=== PATIENT | male | born 1935 | race Two or more races ===

== ENCOUNTER 2017-06-07 16:59 | Emergency (ER) | payer MEDICAID, OTHER ==
[~2017-06-07] VITALS: Ht 160 cm; Wt 54.4 kg
[~2017-06-07 16:59] MED LIST: ACET325T53 PO; DOCU-270 PO; LACT10SO6 PO; PANT40TA2 PO; TAMS-12 PO; TERA5CAP PO; Zolpidem Tartrate PO
[2017-06-07 17:38] VITALS: BP 144/79
== END 2017-06-07 18:21 | disposition home or self-care (01) ==
LOC: ER 17:01
DX: I10 Essential (primary) hypertension (principal); F41.9 Anxiety disorder, unspecified; N40.0 Benign prostatic hyperplasia without lower urinary tract symptoms
CPT/HCPCS: A4606; Z7502; Z7610

== ENCOUNTER 2017-09-24 03:53 | Emergency (ER) | payer MEDICARE, MEDICAID ==
[~2017-09-24] VITALS: Ht 152.4 cm; Wt 61.7 kg
--- NOTE | 2017-09-24 04:00 | NUR ---
PATIENT RECEIVED FROM HOME C/O ANXIETY AND NOT BEING ABLE TO FALL ASLEEP. A/O X4 ABLE TO MAKE NEEDS KNOWN. NO SOB OR PAIN UPON ASSESSMENT. WILL CONTINUE TO MONITOR FOR ANY CHANGES
--- NOTE | 2017-09-24 04:10 | NUR ---
IN ROOM FOR EVAL
--- NOTE | 2017-09-24 04:27 | NUR ---
DISCHARGE INSTRUCTIONS GIVEN AND UNDERSTOOD
[2017-09-24 04:34] VITALS: BP 164/87
--- NOTE | 2017-09-24 04:34 | NUR ---
PATIENT LEFT ON OWN ABILITY.
== END 2017-09-24 04:30 | disposition home or self-care (01) ==
LOC: ER 03:57
DX: G47.00 Insomnia, unspecified (principal); I10 Essential (primary) hypertension; N40.0 Benign prostatic hyperplasia without lower urinary tract symptoms
CPT/HCPCS: 99283; A4606; Z7610

== ENCOUNTER 2018-12-14 20:00 | Emergency (ER) | payer MEDICAID ==
[~2018-12-14] VITALS: Ht 160 cm; Wt 56.7 kg
--- NOTE | 2018-12-14 20:25 | NUR ---
PT C/C Cough w/ congestion, chest tightness, weakness, headaches x 3 days. NAD NOTED. PT DENIES PAIN AT THIS TIME. RESP EVEN AND UNLABORED. PT ON MONITOR IN BED 3. WILL CONTINUE TO MONITOR.
[2018-12-14 20:43] VITALS: BP 161/85
== END 2018-12-14 23:35 | disposition home or self-care (01) ==
LOC: ER 20:02
DX: J06.9 Acute upper respiratory infection, unspecified (principal); I10 Essential (primary) hypertension; N40.0 Benign prostatic hyperplasia without lower urinary tract symptoms; F10.10 Alcohol abuse, uncomplicated; Y90.9 Presence of alcohol in blood, level not specified
CPT/HCPCS: 71045-TC; 87400

== ENCOUNTER 2019-11-28 14:59 | Emergency (ER) | payer MEDICARE, OTHER ==
[~2019-11-28] VITALS: Ht 160 cm; Wt 56.7 kg
--- NOTE | 2019-11-28 15:30 | NUR ---
patient came in to the er c/o left second toe pain x 2 months, on and off, worst today 8/10ps. On room air, breathing evenly and unlabored. kept comfortable, will continue to monitor accordingly.
[2019-11-28] MEDS ORDERED: IBUPROFEN 600 MG TABLET PO ONE ×2 (16:42→17:00)
[2019-11-28 16:56] VITALS: BP 133/78
--- NOTE | 2019-11-28 16:57 | NUR ---
Patient discharged to home in stable condition. Written and verbal after care instructions given. Patient verbalizes understanding of instruction.
== END 2019-11-28 16:56 | disposition home or self-care (01) ==
LOC: ER 14:59
DX: L03.032 Cellulitis of left toe (principal); I10 Essential (primary) hypertension; N40.0 Benign prostatic hyperplasia without lower urinary tract symptoms; Z79.899 Other long term (current) drug therapy
CPT/HCPCS: 73630-TC

== ENCOUNTER 2020-02-06 14:31 | Emergency (ER) | payer MEDICARE, OTHER ==
[~2020-02-06] VITALS: Ht 149.9 cm; Wt 52.2 kg
--- NOTE | 2020-02-06 14:43 | NUR ---
DR WRIGHT AT BEDSIDE FOR EVAL.
--- NOTE | 2020-02-06 15:12 | NUR ---
REHABILITATION PROGRAM COORDINATOR AT BEDSIDE FOR BLOOD DRAW
[2020-02-06 15:24] LABS: BASOPHILS # (AUTO) 0.1 /CMM (0.0-0.2); BASOPHILS % (AUTO) 1.1 % (0.0-2.0); EOSINOPHILS % (AUTO) 2.9 % (0.0-6.0); HEMATOCRIT 37 % (39-51); HEMOGLOBIN 12.3 g/dL (13.5-17.5); LYMPHOCYTES # (AUTO) 0.8 /CMM (0.8-4.8); LYMPHOCYTES % (AUTO) 10.2 % (20.0-44.0); MEAN CORPUSCULAR HGB CONC 34 g/dl (31.0-36.0); MEAN CORPUSCULAR VOLUME 92 fL (80-96); MONOCYTES # (AUTO) 0.5 /CMM (0.1-1.30); MONOCYTES % (AUTO) 6.7 % (2.0-12.0); NEUTROPHILS # (AUTO) 5.9 /CMM (1.8-8.9); NEUTROPHILS % (AUTO) 79.1 % (43.0-81.0); PLATELET COUNT (AUTO) 173 /CMM (150-450); RED BLOOD CELL COUNT(AUTO) 3.96 MIL/uL (4.5-6.0); WHITE BLOOD COUNT (AUTO) 7.4 K/uL (4.3-11.0)
[2020-02-06 16:08] LABS: ALANINE AMINOTRANSFERASE 26 U/L (12-78); ALBUMIN 3.4 g/dL (3.4-5.0); ALKALINE PHOSPHATASE 95 U/L (46-116); ASPARTATE AMINOTRANSFERASE 18 U/L (15-37); BILIRUBIN,TOTAL 0.4 mg/dL (0.2-1.0); CALCIUM, SERUM 8.1 mg/dL (8.5-10.1); CARBON DIOXIDE 21 mmol/L (21-32); CHLORIDE 109 mmol/L (98-107); CREATININE 2.5 mg/dL (0.6-1.3); GLUCOSE 110 mg/dL (74-106); POTASSIUM 4.4 mmol/L (3.5-5.1); SODIUM SERUM 143 mmol/L (136-145); TOTAL PROTEIN, SERUM 6.9 g/dL (6.4-8.2); UREA NITROGEN, BLOOD 35 mg/dL (7-18)
[2020-02-06 16:22] VITALS: BP 128/80
--- NOTE | 2020-02-06 16:22 | NUR ---
Patient discharged to home in stable condition. Written and verbal after care instructions given. Patient verbalizes understanding of instruction.
== END 2020-02-06 16:24 | disposition home or self-care (01) ==
LOC: EDBD → ER 14:31
DX: G25.81 Restless legs syndrome (principal); G89.29 Other chronic pain; M79.675 Pain in left toe(s); I10 Essential (primary) hypertension; N40.0 Benign prostatic hyperplasia without lower urinary tract symptoms; Z79.899 Other long term (current) drug therapy
CPT/HCPCS: 36415; 73630-TC; 80053-TC; 85025-TC

== ENCOUNTER 2020-02-12 06:32 | Emergency (ER) | payer MEDICARE, OTHER ==
[~2020-02-12] VITALS: Ht 149.9 cm; Wt 52.2 kg
--- NOTE | 2020-02-12 06:45 | NUR ---
at the bed side
[2020-02-12] MEDS ORDERED: BENAZEPRIL HCL 10 MG TABLET ONE (06:58)
[2020-02-12] MEDS ORDERED: BENAZEPRIL HCL 10 MG TABLET PO ONE ×2 (07:00)
[2020-02-12 07:32] VITALS: BP 178/72
--- NOTE | 2020-02-12 07:32 | NUR ---
Patient discharged to home in stable condition. Written and verbal after care instructions given. Patient verbalizes understanding of instruction.
== END 2020-02-12 07:32 | disposition home or self-care (01) ==
LOC: ER 06:35 → EDBD 06:35 → ER 07:32
DX: K59.00 Constipation, unspecified (principal); I10 Essential (primary) hypertension; N40.0 Benign prostatic hyperplasia without lower urinary tract symptoms; Z79.899 Other long term (current) drug therapy

== ENCOUNTER 2020-02-14 08:15 | Emergency (ER) | payer MEDICARE, OTHER ==
[~2020-02-14] VITALS: Ht 144.8 cm; Wt 54.4 kg
[2020-02-14 08:21] VITALS: BP 179/95
[2020-02-14] MEDS ORDERED: SILVER NITRATE APPLICATOR 1 EA BOX ONE (08:28)
--- NOTE | 2020-02-14 08:29 | NUR ---
AT BEDSIDE FOR EVAL.
--- NOTE | 2020-02-14 08:45 | NUR ---
Patient discharged to home in stable condition. Written and verbal after care instructions given. Patient verbalizes understanding of instruction.
== END 2020-02-14 08:46 | disposition home or self-care (01) ==
LOC: ER 08:23
DX: R04.0 Epistaxis (principal); I10 Essential (primary) hypertension; Z79.899 Other long term (current) drug therapy

== ENCOUNTER 2020-07-16 07:36 | Emergency (ER) | payer MEDICARE, OTHER ==
[~2020-07-16] VITALS: Ht 160 cm; Wt 62.1 kg
--- NOTE | 2020-07-16 07:50 | NUR ---
SEEN AND EVAL BY MD WITH NEW ORDERS NOTED
--- NOTE | 2020-07-16 07:55 | NUR ---
IV LINE ESTABLISHED. BLOOD DRAWN AND SENT TO LAB
[2020-07-16] MEDS ORDERED: ACETAMINOPHEN ES 500 MG TABLET PO ONE (08:00)
[2020-07-16 08:02] LABS: BASOPHILS # (AUTO) 0.1 /CMM (0.0-0.2); BASOPHILS % (AUTO) 0.9 % (0.0-2.0); EOSINOPHILS % (AUTO) 4.2 % (0.0-6.0); HEMATOCRIT 38 % (39-51); HEMOGLOBIN 13.4 g/dL (13.5-17.5); LYMPHOCYTES # (AUTO) 1.1 /CMM (0.8-4.8); LYMPHOCYTES % (AUTO) 14.6 % (20.0-44.0); MEAN CORPUSCULAR HGB CONC 35 g/dl (31.0-36.0); MEAN CORPUSCULAR VOLUME 92 fL (80-96); MONOCYTES # (AUTO) 0.8 /CMM (0.1-1.30); NEUTROPHILS # (AUTO) 5.4 /CMM (1.8-8.9); NEUTROPHILS % (AUTO) 70.3 % (43.0-81.0); PLATELET COUNT (AUTO) 200 /CMM (150-450); RED BLOOD CELL COUNT(AUTO) 4.16 MIL/uL (4.5-6.0); WHITE BLOOD COUNT (AUTO) 7.7 K/uL (4.3-11.0)
[2020-07-16] MEDS ORDERED: ACETAMINOPHEN ES 500 MG TABLET ONE (08:04)
--- NOTE | 2020-07-16 08:14 | NUR ---
CT CAME TO PT ROOM TO DO CT
[2020-07-16 08:17] LABS: CALCIUM, SERUM 8.4 mg/dL (8.5-10.1); CARBON DIOXIDE 24 mmol/L (21-32); CHLORIDE 108 mmol/L (98-107); CREATININE 1.9 mg/dL (0.6-1.3); GLUCOSE 99 mg/dL (74-106); POTASSIUM 4.4 mmol/L (3.5-5.1); SODIUM SERUM 140 mmol/L (136-145); UREA NITROGEN, BLOOD 32 mg/dL (7-18)
[2020-07-16 08:24] LABS: APPEARANCE,URINE CLEAR (CLEAR); COLOR,URINE YELLOW (YELLOW); PH,URINE 6.5 (5.0-8.0)
[2020-07-16 08:25] LABS: BILIRUBIN,URINE NEGATIVE (NEGATIVE); BLOOD, URINE N Ery/uL (NEGATIVE); KETONES,URINE NEGATIVE (NEGATIVE); LEUKOCYTE ESTERASE ,URINE NEGATIVE (NEGATIVE); NITRITE, URINE NEGATIVE (NEGATIVE); UGLUCOSE NEGATIVE (NEGATIVE); UROBILINOGEN,URINE 0.2 EU/dL (0.2)
[2020-07-16 08:28] LABS: ALANINE AMINOTRANSFERASE 23 U/L (12-78); ALBUMIN 3.5 g/dL (3.4-5.0); ALKALINE PHOSPHATASE 102 U/L (46-116); ASPARTATE AMINOTRANSFERASE 20 U/L (15-37); BILIRUBIN,DIRECT 0.1 mg/dL (0.0-0.2); BILIRUBIN,TOTAL 0.5 mg/dL (0.2-1.0); LIPASE 256 U/L (73-393); TOTAL PROTEIN, SERUM 7.2 g/dL (6.4-8.2)
[2020-07-16 09:00] VITALS: BP 163/87
== END 2020-07-16 09:01 | disposition home or self-care (01) ==
LOC: ER 07:42
DX: R10.31 Right lower quadrant pain (principal); R10.11 Right upper quadrant pain; E86.0 Dehydration; I10 Essential (primary) hypertension; N40.0 Benign prostatic hyperplasia without lower urinary tract symptoms; Z79.899 Other long term (current) drug therapy
CPT/HCPCS: 36415; 71045-TC; 80048-TC; 80076-TC; 81000-TC; 83690-TC; 85025-TC

== ENCOUNTER 2020-07-31 22:25 | Emergency (ER) | payer MEDICARE, OTHER ==
[~2020-07-31] VITALS: Ht 160 cm; Wt 56.7 kg
[2020-07-31 22:50] VITALS: BP 159/83
== END 2020-07-31 23:53 | disposition home or self-care (01) ==
LOC: ER 22:25
DX: R14.0 Abdominal distension (gaseous) (principal); I10 Essential (primary) hypertension; Z02.89 Encounter for other administrative examinations; Z79.899 Other long term (current) drug therapy
CPT/HCPCS: 74018

== ENCOUNTER 2020-10-01 14:02 | Emergency (ER) | payer MEDICARE, OTHER ==
[~2020-10-01] VITALS: Ht 152.4 cm; Wt 59.0 kg
[2020-10-01] MEDS ORDERED: FINA5TAB11 PO (14:38)
[2020-10-01] MEDS ORDERED: AMLO-212 PO (14:38)
[2020-10-01] MEDS ORDERED: GABA300C PO (14:38)
[2020-10-01 15:31] LABS: BILIRUBIN,URINE NEGATIVE (NEGATIVE); BLOOD, URINE SMALL Ery/uL (NEGATIVE); COLOR,URINE YELLOW (YELLOW); LEUKOCYTE ESTERASE ,URINE NEGATIVE (NEGATIVE); NITRITE, URINE NEGATIVE (NEGATIVE); PH,URINE 5.5 (5.0-8.0); PROTEIN,URINE 100 mg/dl (NEGATIVE); UGLUCOSE NEGATIVE (NEGATIVE); UROBILINOGEN,URINE 0.2 EU/dL (0.2)
[2020-10-01 15:45] VITALS: BP 124/62
[2020-10-01 15:47] LABS: BACTERIA,URINE 1+ /HPF (None Seen); SQUAMOUS EPITHELIAL CELL,UR Few /HPF (None Seen); WBC,URINE 0-2 /HPF (0-3)
[2020-10-04] MEDS ORDERED: POTASSIUM CHLORIDE 10 MEQ TABLET.SA ONE (12:33)
[2020-10-04] MEDS ORDERED: DILTIAZEM HCL 30 MG TABLET ONE (12:33)
== END 2020-10-01 15:59 | disposition home or self-care (01) ==
LOC: ER 14:24
DX: R35.0 Frequency of micturition (principal); N40.0 Benign prostatic hyperplasia without lower urinary tract symptoms; I10 Essential (primary) hypertension; Z79.899 Other long term (current) drug therapy
CPT/HCPCS: 81001

== ENCOUNTER 2020-10-03 12:18 | Inpatient (IN) | payer MEDICARE, OTHER ==
[~2020-10-03] VITALS: Ht 160 cm; Wt 56.2 kg
[~2020-10-03 12:18] MED LIST changes: -ACET325T53 PO; +AMLO-212 PO; +FINA5TAB11 PO; +GABA300C PO; -LACT10SO6 PO; -TAMS-12 PO; -TERA5CAP PO; -Zolpidem Tartrate PO
[2020-10-03] MEDS ORDERED: IV NS 0.9% 500 ML BAG IV ONE (13:00)
--- NOTE | 2020-10-03 13:01 | NUR ---
pt rec'd to er c/o frequency urineation was here on tuesday for the same thing . iv started rt fa wog infusing ns . labs drawn sent to lab ,vss
[2020-10-03 13:02] LABS: BASOPHILS % (AUTO) 0.3 % (0.0-2.0); HEMATOCRIT 42 % (39-51); HEMOGLOBIN 13.7 g/dL (13.5-17.5); LYMPHOCYTES # (AUTO) 0.3 /CMM (0.8-4.8); LYMPHOCYTES % (AUTO) 3.6 % (20.0-44.0); MEAN CORPUSCULAR HGB CONC 33 g/dl (31.0-36.0); MEAN CORPUSCULAR VOLUME 92 fL (80-96); MONOCYTES # (AUTO) 0.4 /CMM (0.1-1.30); MONOCYTES % (AUTO) 5.7 % (2.0-12.0); NEUTROPHILS # (AUTO) 6.3 /CMM (1.8-8.9); NEUTROPHILS % (AUTO) 90.4 % (43.0-81.0); PLATELET COUNT (AUTO) 164 /CMM (150-450); RED BLOOD CELL COUNT(AUTO) 4.51 MIL/uL (4.5-6.0); WHITE BLOOD COUNT (AUTO) 6.9 K/uL (4.3-11.0)
[2020-10-03 13:11] LABS: CALCIUM, SERUM 8.3 mg/dL (8.5-10.1); CARBON DIOXIDE 18 mmol/L (21-32); CHLORIDE 106 mmol/L (98-107); CREATININE 2.6 mg/dL (0.6-1.3); GLUCOSE 148 mg/dL (74-106); POTASSIUM 3.7 mmol/L (3.5-5.1); SODIUM SERUM 141 mmol/L (136-145); UREA NITROGEN, BLOOD 36 mg/dL (7-18)
[2020-10-03 13:16] LABS: ALANINE AMINOTRANSFERASE 28 U/L (12-78); ALBUMIN 2.9 g/dL (3.4-5.0); ALKALINE PHOSPHATASE 82 U/L (46-116); ASPARTATE AMINOTRANSFERASE 33 U/L (15-37); BILIRUBIN,DIRECT 0.2 mg/dL (0.0-0.2); BILIRUBIN,TOTAL 0.5 mg/dL (0.2-1.0); LIPASE 481 U/L (73-393); TOTAL PROTEIN, SERUM 7.4 g/dL (6.4-8.2)
--- NOTE | 2020-10-03 13:48 | NUR ---
MOVE SHEET SUBMITTED AND CALLED FOR TELE BED.
--- NOTE | 2020-10-03 13:51 | NUR ---
[facility] CALLED [facility] PAGED.
--- NOTE | 2020-10-03 14:00 | NUR ---
covid swab done and sent to lab
--- NOTE | 2020-10-03 14:12 | NUR ---
JEAN-PAUL, NEPHEW - [phone]
--- NOTE | 2020-10-03 14:12 | NUR ---
pt resting cont to monitor
--- NOTE | 2020-10-03 14:13 | NUR ---
pt being admitted for afib
--- NOTE | 2020-10-03 14:38 | NUR ---
LAB CALLED PT COVID RESULT POSITIVE (+)
[2020-10-03 16:28] LABS: BILIRUBIN,URINE Negative (NEGATIVE); COLOR,URINE YELLOW (YELLOW); LEUKOCYTE ESTERASE ,URINE Negative (NEGATIVE); NITRITE, URINE Negative (NEGATIVE); PROTEIN,URINE 100 mg/dl (NEGATIVE); UGLUCOSE Negative (NEGATIVE); UROBILINOGEN,URINE 0.2 EU/dL (0.2)
[2020-10-03 16:37] LABS: BACTERIA,URINE Few /HPF (None Seen); SQUAMOUS EPITHELIAL CELL,UR Few /HPF (None Seen); WBC,URINE 0-2 /HPF (0-3)
[2020-10-03 16:38] LABS: COARSE GRANULAR CASTS,URINE Few /LPF (None Seen)
[2020-10-03] MEDS ORDERED: MAG HYDROX/AL HYDROX/SIMETH 30 ML UDC PO PRN (18:00)
[2020-10-03] MEDS ORDERED: MAGNESIUM HYDROXIDE 30 ML UDC PO PRN (18:00)
[2020-10-03] MEDS ORDERED: ZOLPIDEM TARTRATE 5 MG TABLET PO PRN (18:00)
[2020-10-03] MEDS ORDERED: HEPARIN SODIUM, PORCINE 5000 UNITS/1 ML VIAL SQ ONE (18:00)
[2020-10-03] MEDS ORDERED: Z GUARD REMEDY 2 OZ OINT TP PRN (18:00)
[2020-10-03] MEDS ORDERED: ONDANSETRON HCL/PF 4 MG/2 ML VIAL IVP PRN (18:00)
[2020-10-03] MEDS ORDERED: DILTIAZEM HCL 30 MG TABLET PO ONE (18:00)
[2020-10-03] MEDS ORDERED: ACETAMINOPHEN 325 MG TABLET PO PRN (18:00)
[2020-10-03] MEDS ORDERED: DOCUSATE SODIUM LIQ 100 MG/10 ML UDC ONE (18:58)
[2020-10-03] MEDS: DOCUSATE SODIUM 100 MG CAPSULE PO SCH (19:00)
[2020-10-03] MEDS ORDERED: AMIODARONE 450 MG in IV D5W 250 ML IV PRN ×2 (19:30→23:30)
[2020-10-03] MEDS ORDERED: AMIODARONE 150 MG in IV D5W 100 ML IV ONE (19:30)
[2020-10-03] MEDS ORDERED: DILTIAZEM HCL 30 MG TABLET PO SCH (20:48)
[2020-10-03] MEDS ORDERED: AMIODARONE 150 MG/3 ML VIAL IV ONE ×2 (21:29→22:12)
--- NOTE | 2020-10-03 21:50 | NUR ---
MEDICATION- AMIODARONE DRIP STARTED AT 1MG/MIN FOR 6x HOURS PER PROTOCOL. UNABLE TO CLICK "AMINISTER" ON eMAR DUE TO TECHINICAL ISSUES.
[2020-10-03 22:22] LABS: MAGNESIUM 1.8 mg/dL (1.8-2.4); PHOSPHORUS 2.7 mg/dL (2.5-4.9)
--- NOTE | 2020-10-03 22:52 | NUR ---
SPOKE WITH PHARMACISTJOSSE REGARDING ISSUE WITH eMAR WHEN TRYING TO ADMINISTER MEDICATION- AMIODARONE 450MG DRIP IV.
[2020-10-03 23:00] LABS: THYROID STIMULATING HORMONE 0.443 uIU/mL (0.358-3.74)
[2020-10-04] MEDS ORDERED: DILTIAZEM HCL 30 MG TABLET ONE ×2 (00:19→06:24)
[2020-10-04] MEDS: DILTIAZEM HCL 30 MG TABLET PO SCH ×4 (00:22→17:27)
--- NOTE | 2020-10-04 00:43 | NUR ---
PATIENT IS SLEEPING. PATIENT IS ABLE TO REPOSITION BY HIMSELF. PILLOWS ARE PLACED UNDER HEELS FOR COMFORT. PATIENT IS BREATHING EVENLY AND UNLABORED. CONNECTED TO THE MONITOR. SIDE RAILS AT THE LOWEST POSITION. CALL LIGHT IS WITHIN REACH.
--- NOTE | 2020-10-04 03:53 | NUR ---
PATIENT'S AMIODARONE DRIP CHANGED TO A 0.5MG/MIN FOR THE NEXT 18HRS.
[2020-10-04] MEDS ORDERED: AMIODARONE 450 MG in IV D5W 250 ML IV PRN (05:30)
[2020-10-04 06:32] LABS: BASOPHILS % (AUTO) 0.2 % (0.0-2.0); HEMATOCRIT 35 % (39-51); HEMOGLOBIN 12.1 g/dL (13.5-17.5); LYMPHOCYTES # (AUTO) 0.5 /CMM (0.8-4.8); LYMPHOCYTES % (AUTO) 8.2 % (20.0-44.0); MEAN CORPUSCULAR HGB CONC 34 g/dl (31.0-36.0); MEAN CORPUSCULAR VOLUME 90 fL (80-96); MONOCYTES # (AUTO) 0.4 /CMM (0.1-1.30); MONOCYTES % (AUTO) 5.6 % (2.0-12.0); NEUTROPHILS # (AUTO) 5.5 /CMM (1.8-8.9); PLATELET COUNT (AUTO) 142 /CMM (150-450); WHITE BLOOD COUNT (AUTO) 6.4 K/uL (4.3-11.0)
--- NOTE | 2020-10-04 06:47 | NUR ---
PATIENT'S FAMILY MEMBER, BRAD CHATTERJEE, [phone]
[2020-10-04 06:59] LABS: CALCIUM, SERUM 7.7 mg/dL (8.5-10.1); CARBON DIOXIDE 20 mmol/L (21-32); CHLORIDE 110 mmol/L (98-107); CREATININE 2.1 mg/dL (0.6-1.3); GLUCOSE 114 mg/dL (74-106); MAGNESIUM 1.8 mg/dL (1.8-2.4); PHOSPHORUS 2.4 mg/dL (2.5-4.9); POTASSIUM 3.4 mmol/L (3.5-5.1); SODIUM SERUM 142 mmol/L (136-145); UREA NITROGEN, BLOOD 28 mg/dL (7-18)
[2020-10-04 07:08] LABS: CHOLESTEROL 114 mg/dL (<200); HDL CHOLESTEROL 52 mg/dL (40-60); LDL 55 mg/dL (0-99); THYROID STIMULATING HORMONE 0.473 uIU/mL (0.358-3.74); TRIGLYCERIDES 70 mg/dL (30-150)
--- NOTE | 2020-10-04 07:26 | NUR ---
REPORT GIVEN TO EMI ACOSTA FOR ROX.
[2020-10-04] MEDS ORDERED: PANTOPRAZOLE 40 MG TABLET.DR PO SCH (07:30)
[2020-10-04] MEDS: PANTOPRAZOLE 40 MG TABLET.DR PO SCH (08:30)
--- NOTE | 2020-10-04 08:40 | NUR ---
PT SLEEPING GIVEN PROTONIX 40 MG PO FELL BACK TO SLEEP
[2020-10-04] MEDS: FINASTERIDE (5 MG) 5 MG TABLET PO SCH ×2 (09:00→09:30)
[2020-10-04] MEDS: APIXABAN 2.5 MG TABLET PO SCH ×2 (09:00→17:26)
[2020-10-04] MEDS: GABAPENTIN 300 MG CAPSULE PO SCH ×3 (09:00→17:27)
[2020-10-04] MEDS: AMLODIPINE BESYLATE 5 MG TABLET PO SCH (09:30)
[2020-10-04] MEDS: POTASSIUM PHOSPHATE MM 7.5 MMOL in IV NS 0.9% 100 ML IV SCH ×2 (09:30→12:43)
[2020-10-04] MEDS ORDERED: AMLODIPINE BESYLATE 5 MG TABLET ONE (10:01)
[2020-10-04] MEDS ORDERED: GABAPENTIN 300 MG CAPSULE ONE (10:22)
[2020-10-04] MEDS ORDERED: POTASSIUM CHLORIDE 10 MEQ TABLET.SA PO ONE (11:15)
--- NOTE | 2020-10-04 12:13 | NUR ---
Rush pat in EDM - 10/04/20 at 1214 by PAULINE SPOKE TO BEN PORRAS PER PT REQUEST, MADE AWARE OF ADMISSION
--- NOTE | 2020-10-04 12:14 | NUR ---
SPOKE TO VERN PER PT REQUEST, MADE AWARE OF ADMISSION
--- NOTE | 2020-10-04 12:45 | NUR ---
PT ATE LUNCH MEDS GIVEN PER MD ORDER
--- NOTE | 2020-10-04 15:45 | NUR ---
pt resting vss cont to monitor
--- NOTE | 2020-10-04 17:33 | NUR ---
pt took 1700 meds per md order
--- NOTE | 2020-10-04 18:11 | NUR ---
pt given dinner vss
[2020-10-04] MEDS ORDERED: DEXAMETHASONE SOD PHOSPHATE 10 MG/ML VIAL ONE (20:32)
[2020-10-04] MEDS: DEXAMETHASONE SOD PHOSPHATE 10 MG/ML VIAL IV SCH (20:40)
[2020-10-04] MEDS: DOCUSATE SODIUM 100 MG CAPSULE PO SCH (22:32)
[2020-10-05] MEDS: DILTIAZEM HCL 30 MG TABLET PO SCH ×4 (00:58→18:03)
[2020-10-05] MEDS: IV NS 0.9% 1,000 ML IV PRN (04:59)
--- NOTE | 2020-10-05 07:39 | NUR ---
BREAKFAST TRAY PROVIDED. TOLERATING PO WELL.
[2020-10-05] MEDS: PANTOPRAZOLE 40 MG TABLET.DR PO SCH (07:49)
[2020-10-05 07:55] LABS: BASOPHILS % (AUTO) 0.1 % (0.0-2.0); HEMATOCRIT 36 % (39-51); HEMOGLOBIN 11.9 g/dL (13.5-17.5); LYMPHOCYTES # (AUTO) 0.3 /CMM (0.8-4.8); LYMPHOCYTES % (AUTO) 4.5 % (20.0-44.0); MEAN CORPUSCULAR HGB CONC 33 g/dl (31.0-36.0); MEAN CORPUSCULAR VOLUME 91 fL (80-96); MONOCYTES # (AUTO) 0.2 /CMM (0.1-1.30); MONOCYTES % (AUTO) 3.4 % (2.0-12.0); NEUTROPHILS # (AUTO) 5.5 /CMM (1.8-8.9); PLATELET COUNT (AUTO) 150 /CMM (150-450); RED BLOOD CELL COUNT(AUTO) 3.93 MIL/uL (4.5-6.0)
[2020-10-05 08:14] LABS: ALANINE AMINOTRANSFERASE 24 U/L (12-78); ALBUMIN 2.1 g/dL (3.4-5.0); ALKALINE PHOSPHATASE 68 U/L (46-116); ASPARTATE AMINOTRANSFERASE 27 U/L (15-37); BILIRUBIN,TOTAL 0.4 mg/dL (0.2-1.0); CALCIUM, SERUM 7.9 mg/dL (8.5-10.1); CARBON DIOXIDE 16 mmol/L (21-32); CHLORIDE 110 mmol/L (98-107); CREATININE 2.3 mg/dL (0.6-1.3); GLUCOSE 170 mg/dL (74-106); MAGNESIUM 1.9 mg/dL (1.8-2.4); PHOSPHORUS 3.7 mg/dL (2.5-4.9); POTASSIUM 3.7 mmol/L (3.5-5.1); SODIUM SERUM 141 mmol/L (136-145); UREA NITROGEN, BLOOD 33 mg/dL (7-18)
[2020-10-05] MEDS ORDERED: DEXAMETHASONE SOD PHOSPHATE 10 MG/ML VIAL ONE (09:14)
[2020-10-05] MEDS: GABAPENTIN 300 MG CAPSULE PO SCH ×3 (09:28→17:31)
[2020-10-05] MEDS: DEXAMETHASONE SOD PHOSPHATE 10 MG/ML VIAL IV SCH (09:28)
[2020-10-05] MEDS: APIXABAN 2.5 MG TABLET PO SCH ×2 (09:28→17:31)
[2020-10-05] MEDS: AMLODIPINE BESYLATE 5 MG TABLET PO SCH (09:29)
--- NOTE | 2020-10-05 09:34 | NUR ---
NOTED W SMALL, SOFT BOWEL MOVEMENT. CLEANED PATIENT. KEPT COMFORTABLE. HOOKED TO MONITOR. VSS
--- NOTE | 2020-10-05 10:42 | NUR ---
REPOSITIONED TO HIS RIGHT SIDE
--- NOTE | 2020-10-05 12:47 | NUR ---
OFFERED LUNCH TRAY, PATIENT DOES NOT WANT TO EAT YET. PLACED TRAY AT BEDSIDE
[2020-10-05] MEDS ORDERED: GABAPENTIN 300 MG CAPSULE ONE (13:27)
--- NOTE | 2020-10-05 14:21 | NUR ---
REPOSITIONED TO HIS LEFT SIDE
--- NOTE | 2020-10-05 15:06 | NUR ---
PATIENT IN BED ASLEEP. EASILY AROUSABLE BY VOICE. HOOKED TO MONITOR. WILL CONTINUE TO MONITOR ACCORDINGLY
--- NOTE | 2020-10-05 17:42 | NUR ---
REPOSITIONED TO SUPINE POSITION
--- NOTE | 2020-10-05 19:31 | NUR ---
PATIENT IN BED EATING DINNER. TOLERATING PO WELL.
--- NOTE | 2020-10-05 19:38 | NUR ---
ENDORSEMENT GIVEN TO CLIFFORD ACOSTA FOR ROX
--- NOTE | 2020-10-05 19:54 | NUR ---
PATIENT IS FINISHED EATING WITH FOOD, 75% OF TRAY FINISHED.
--- NOTE | 2020-10-05 20:20 | NUR ---
PATIENT IS CLEANED, GOWN CHANGED, BEDSHEET IS CHANGED, AND PERICARE IS PROVIDED. PATIENT IS TOLERATING WELL. PATIENT STATES THAT HE NEEDS TO HAVE A BOWEL MOVEMENT AGAIN. TOILETRY IS OFFERED.
--- NOTE | 2020-10-05 20:49 | NUR ---
PATIENT HAD A BOWEL MOVEMENT. SOFT. BROWN. W/ URINE ON THE BEDPAN. PATIENT IS CHANGED. PATIENT IS REPOSITIONED UP HIGHER IN THE BED AND PLACED ONTO HIS RIGHT.
[2020-10-05] MEDS: DOCUSATE SODIUM 100 MG CAPSULE PO SCH (22:00)
[2020-10-06] MEDS: IV NS 0.9% 1,000 ML IV PRN ×3 (00:42→23:46)
[2020-10-06] MEDS: DILTIAZEM HCL 30 MG TABLET PO SCH ×5 (00:48→23:46)
[2020-10-06] MEDS ORDERED: DILTIAZEM HCL 30 MG TABLET ONE ×5 (01:01→23:36)
[2020-10-06 05:26] LABS: HEMATOCRIT 38 % (39-51); HEMOGLOBIN 12.7 g/dL (13.5-17.5); LYMPHOCYTES # (AUTO) 0.3 /CMM (0.8-4.8); LYMPHOCYTES % (AUTO) 2.6 % (20.0-44.0); MEAN CORPUSCULAR HGB CONC 34 g/dl (31.0-36.0); MEAN CORPUSCULAR VOLUME 91 fL (80-96); MONOCYTES # (AUTO) 0.6 /CMM (0.1-1.30); NEUTROPHILS # (AUTO) 10.9 /CMM (1.8-8.9); NEUTROPHILS % (AUTO) 92.4 % (43.0-81.0); PLATELET COUNT (AUTO) 167 /CMM (150-450); RED BLOOD CELL COUNT(AUTO) 4.13 MIL/uL (4.5-6.0); WHITE BLOOD COUNT (AUTO) 11.8 K/uL (4.3-11.0)
[2020-10-06 05:54] LABS: CALCIUM, SERUM 8.3 mg/dL (8.5-10.1); CARBON DIOXIDE 16 mmol/L (21-32); CHLORIDE 113 mmol/L (98-107); CREATININE 1.9 mg/dL (0.6-1.3); GLUCOSE 147 mg/dL (74-106); MAGNESIUM 1.9 mg/dL (1.8-2.4); PHOSPHORUS 3.2 mg/dL (2.5-4.9); POTASSIUM 4.2 mmol/L (3.5-5.1); SODIUM SERUM 143 mmol/L (136-145); UREA NITROGEN, BLOOD 42 mg/dL (7-18)
--- NOTE | 2020-10-06 07:32 | NUR ---
REPORT GIVEN TO KLAUS ACOSTA FOR ROX.
--- NOTE | 2020-10-06 07:45 | NUR ---
pt desatting on 5L via nc, placed on nrb at 15L now satting at 98%
[2020-10-06] MEDS ORDERED: HYDROCODONE/APAP 5/325MG TABLET ONE ×2 (08:06→16:07)
[2020-10-06] MEDS: HYDROCODONE/APAP 5/325MG TABLET PO PRN ×2 (08:09→16:11)
[2020-10-06] MEDS: FINASTERIDE (5 MG) 5 MG TABLET PO SCH (08:11)
[2020-10-06] MEDS: APIXABAN 2.5 MG TABLET PO SCH ×2 (08:11→16:24)
[2020-10-06] MEDS: PANTOPRAZOLE 40 MG TABLET.DR PO SCH (08:30)
[2020-10-06] MEDS ORDERED: AMLODIPINE BESYLATE 5 MG TABLET ONE (08:34)
[2020-10-06] MEDS ORDERED: DEXAMETHASONE SOD PHOSPHATE 10 MG/ML VIAL ONE (08:34)
[2020-10-06] MEDS ORDERED: GABAPENTIN 300 MG CAPSULE ONE ×3 (08:34→16:23)
[2020-10-06] MEDS: AMLODIPINE BESYLATE 5 MG TABLET PO SCH (08:35)
[2020-10-06] MEDS: DEXAMETHASONE SOD PHOSPHATE 10 MG/ML VIAL IV SCH (08:35)
[2020-10-06] MEDS ORDERED: PANTOPRAZOLE 40 MG TABLET.DR PO ONE (08:35)
[2020-10-06] MEDS: GABAPENTIN 300 MG CAPSULE PO SCH ×3 (08:35→16:24)
--- NOTE | 2020-10-06 10:00 | NUR ---
adl care provided, kept clean and dry and comfortable.
--- NOTE | 2020-10-06 17:00 | NUR ---
x1 bm noted at this time. cleaned pt and changed briefs and bed sheets.
--- NOTE | 2020-10-06 19:19 | NUR ---
REC'D PT IN BED AWAKE AND ALERT. BREATHING ON O2 AT 15LPM VIA NON REBREATHER MASK. RUTH WELL. NO C/O SOB. SKIN WARM AND DRY, VSS. REMAINED ON MONITOR. CALL LIGHT WITHIN REACH. SR UP X2.
[2020-10-06] MEDS: DOCUSATE SODIUM 100 MG CAPSULE PO SCH (21:19)
--- NOTE | 2020-10-07 01:11 | NUR ---
Patient is resting comfortably in bed with eyes closed. Easily aroused. VSS. on ongoing o2 at 15lpm via non rebreather mask. luis well .will cont to monitor ,
--- NOTE | 2020-10-07 03:53 | NUR ---
TELE 115-2
--- NOTE | 2020-10-07 04:15 | NUR ---
REPORT GIVEN TO PAKO FOR ROX
--- NOTE | 2020-10-07 04:20 | NUR ---
pt noted w/ elevated WBC on the day before w/ no new CBC order for today. brendan winslow, hospitalist made aware w/ a new order for CBC and CMP in AM.
[2020-10-07] MEDS ORDERED: HYDROCODONE/APAP 5/325MG TABLET ONE (04:23)
[2020-10-07] MEDS: HYDROCODONE/APAP 5/325MG TABLET PO PRN (04:40)
--- NOTE | 2020-10-07 04:40 | NUR ---
w/ c/o l rib pain. medicated as ordered. will cont to monitor
--- NOTE | 2020-10-07 04:41 | NUR ---
pt was transferred to 115 under ACLS
[2020-10-07 04:50] VITALS: BP 136/73
--- NOTE | 2020-10-07 04:50 | NUR ---
RN ADMITTING NOTES PATIENT RECEIVED FROM ER VIA GURNEY ACCOMPANIED BY ER STAFF. PATIENT A/O X3, CITIZEN OF [place] SPEAKING. RECEIVED ON NON REBREATHER 15 L WITH BREATHING EVEN AND UNLABORED, NO SOB NOTED. NO SIGNS OF ACUTE DISTRESS. IV LOCATED ON RFA #20 RUNNING NS @ 75 ML/HR. TELE MONITORS PLACED. SKIN ASSESSMENT DONE AND INTACT. PATIENT ORIENTED TO ROOM AND STAFF. SAFETY PRECAUTIONS IN PLACE WITH BED IN LOWEST POSITION, CALL LIGHT WITHIN REACH, BREAKS ON, SIDE RIALS UP.
[2020-10-07 05:09] LABS: HEMATOCRIT 38 % (39-51); LYMPHOCYTES # (AUTO) 0.2 /CMM (0.8-4.8); LYMPHOCYTES % (AUTO) 0.8 % (20.0-44.0); MEAN CORPUSCULAR HGB CONC 34 g/dl (31.0-36.0); MEAN CORPUSCULAR VOLUME 89 fL (80-96); MONOCYTES # (AUTO) 0.6 /CMM (0.1-1.30); MONOCYTES % (AUTO) 2.5 % (2.0-12.0); NEUTROPHILS # (AUTO) 22.4 /CMM (1.8-8.9); NEUTROPHILS % (AUTO) 96.7 % (43.0-81.0); PLATELET COUNT (AUTO) 189 /CMM (150-450); RED BLOOD CELL COUNT(AUTO) 4.25 MIL/uL (4.5-6.0); WHITE BLOOD COUNT (AUTO) 23.1 K/uL (4.3-11.0)
--- NOTE | 2020-10-07 05:15 | NUR ---
PATIENT UPPER AND LOWER DENTURES LISTED IN BELONGINGS, BUT UNABLE TO BE FOUND IN BELONGINGS FROM ER. FOLLOWED UP WITH ER STAFF FOR BELONGINGS AND SAY THEY DO NOT HAVE IT.
[2020-10-07 05:31] LABS: ALANINE AMINOTRANSFERASE 27 U/L (12-78); ALKALINE PHOSPHATASE 72 U/L (46-116); ASPARTATE AMINOTRANSFERASE 31 U/L (15-37); BILIRUBIN,TOTAL 0.4 mg/dL (0.2-1.0); CALCIUM, SERUM 8.3 mg/dL (8.5-10.1); CARBON DIOXIDE 18 mmol/L (21-32); CHLORIDE 115 mmol/L (98-107); CREATININE 1.8 mg/dL (0.6-1.3); GLUCOSE 132 mg/dL (74-106); SODIUM SERUM 144 mmol/L (136-145); UREA NITROGEN, BLOOD 43 mg/dL (7-18)
[2020-10-07] MEDS: DILTIAZEM HCL 30 MG TABLET PO SCH ×4 (05:43→23:04)
--- NOTE | 2020-10-07 07:02 | NUR ---
RN CLOSING NOTES PATIENT IN BED RESTING. A/O X 3 ON 15 L OF O2 VIA NRB WITH NO SIGNS OF RESPIRATORY DISTRESS. NO SIGNS OF ACUTE DISTRESS. NO COMPLAINTS OF PAIN OR DISCOMFORT AT THE MOMENT. IV LOCATED ON R FA #20 RUNNING NS @ 75 ML/HR. SAFETY PRECAUTIONS IN PLACE WITH BED IN LOWEST POSITION, CALL LIGHT WITHIN REACH, BREAKS IN, SIDE RAILS UP. PATIENT KEPT CLEAN AND DRY THROUGHOUT. ALL NEEEDS ATTENDED TO. WILL ENDORSE TO ONCOMING SHIFT ABOUT ROX.
[2020-10-07 08:00] VITALS: BP 150/72
--- NOTE | 2020-10-07 08:00 | NUR ---
RN NOTES PATIENT IN BED RESTING. A/O X 3 ON 15 L OF O2 VIA NRB WITH NO SIGNS OF RESPIRATORY DISTRESS. NO SIGNS OF ACUTE DISTRESS. NO COMPLAINTS OF PAIN OR DISCOMFORT AT THIS TIME. IV LOCATED ON RFA #20 NO REDNESS SWELLING NOTED AT THE SITE. SAFETY PRECAUTIONS IN PLACE WITH BED IN LOWEST POSITION, CALL LIGHT WITHIN REACH, BED LOCKED IN POSITION SIDE RAILS UP. PATIENT KEPT CLEAN AND DRY THROUGHOUT.ALL NEEDS ATTENDED WILL CONTINUE TO MONITOR.
[2020-10-07] MEDS: GABAPENTIN 300 MG CAPSULE PO SCH ×3 (09:40→17:14)
[2020-10-07] MEDS: FINASTERIDE (5 MG) 5 MG TABLET PO SCH (09:40)
[2020-10-07] MEDS: PANTOPRAZOLE 40 MG TABLET.DR PO SCH (09:40)
[2020-10-07] MEDS: DEXAMETHASONE SOD PHOSPHATE 10 MG/ML VIAL IV SCH (09:41)
[2020-10-07] MEDS: APIXABAN 2.5 MG TABLET PO SCH ×2 (09:43→17:18)
[2020-10-07] MEDS: AMLODIPINE BESYLATE 5 MG TABLET PO SCH (09:44)
[2020-10-07 10:42] VITALS: BP 150/72
[2020-10-07 12:00] VITALS: BP 126/79
[2020-10-07 16:00] VITALS: BP 150/80
--- NOTE | 2020-10-07 18:52 | NUR ---
RN NOTES PATIENT IN BED RESTING. A/O X 3 ON 15 L OF O2 VIA NRB WITH NO SIGNS OF RESPIRATORY DISTRESS. NO COMPLAINTS OF PAIN OR DISCOMFORT AT THIS TIME. IV LOCATED ON RFA #20 NO REDNESS SWELLING NOTED AT THE SITE. SAFETY PRECAUTIONS IN PLACE WITH BED IN LOWEST POSITION, CALL LIGHT WITHIN REACH, BED LOCKED IN POSITION SIDE RAILS UP. PATIENT KEPT CLEAN AND DRY THROUGHOUT.ALL NEEDS ATTENDED WILL CONTINUE TO MONITOR.
--- NOTE | 2020-10-07 19:30 | NUR ---
TELE/RN OPENING NOTES RECEIVED PATIENT IN BED RESTING. PATIENT IS ALERT AND ORIENTED X 2, CITIZEN OF [place] AND [place] SPEAKING. BREATHING IS EVEN AND UNLABORED. NO SIGNS OF SOB OR RESPIRATORY DISTRESS NOTED. PATIENT IS IN NO SIGNS OF DISTRESS. TELE READING SR. IV ACCESS ON RIGHT FA HAND #20G INTACT. SAFETY MEASURES ARE IN PLACE, BED IS LOCKED AND PLACED IN THE LOW POSITION, CALL LIGHT WITH IN REACH. SIDE RAILS ARE UP X 3. WILL CONTINUE TO MONITOR THROUGH OUT SHIFT.
[2020-10-07] MEDS: DOCUSATE SODIUM 100 MG CAPSULE PO SCH (21:59)
[2020-10-08] MEDS: DILTIAZEM HCL 30 MG TABLET PO SCH ×3 (05:11→18:07)
[2020-10-08 05:50] LABS: ABG BASE EXCESS -8.2 mmol/L; ABG OXYGEN SATURATION 89.6 % (92.0-98.5); ABG PCO2 22.6 mmHg (35.0-45.0); ABG PH 7.411 (7.350-7.450); ABG PO2 57.8 mmHg (75.0-100.0); AaDO2 632.6 mmHg; COHb 0.3 % (0.5-1.5); MetHb 0.3 % (0.0-1.5); O2Hb 89.1 % (94.0-97.0); SITE, ABG Right Brachial; VENT MODE, BG NRB 100%
--- NOTE | 2020-10-08 06:55 | NUR ---
TELE/RN CLOSING NOTES PATIENT IN BED RESTING. PATIENT IS ALERT AND ORIENTED X 2, GREEK SPEAKING. BREATHING IS EVEN AND UNLABORED. NO SIGNS OF SOB OR RESPIRATORY DISTRESS NOTED. PATIENT IS IN NO SIGNS OF DISTRESS. TELE READING SR. IV ACCESS ON RIGHT FA HAND #20G INTACT. ALL NEEDS MET DURING SHIFT. SAFETY MEASURES ARE IN PLACE, BED IS LOCKED AND PLACED IN THE LOW POSITION, CALL LIGHT WITH IN REACH. SIDE RAILS ARE UP X 3. WILL ENDORSE CARE TO DAY SHIFT NURSE.
[2020-10-08 07:21] LABS: BASOPHILS % (AUTO) 0.1 % (0.0-2.0); HEMATOCRIT 41 % (39-51); HEMOGLOBIN 13.7 g/dL (13.5-17.5); LYMPHOCYTES # (AUTO) 0.3 /CMM (0.8-4.8); LYMPHOCYTES % (AUTO) 0.9 % (20.0-44.0); MEAN CORPUSCULAR HGB CONC 33 g/dl (31.0-36.0); MEAN CORPUSCULAR VOLUME 90 fL (80-96); MONOCYTES # (AUTO) 0.5 /CMM (0.1-1.30); MONOCYTES % (AUTO) 1.7 % (2.0-12.0); NEUTROPHILS # (AUTO) 31.8 /CMM (1.8-8.9); NEUTROPHILS % (AUTO) 97.3 % (43.0-81.0); PLATELET COUNT (AUTO) 241 /CMM (150-450); RED BLOOD CELL COUNT(AUTO) 4.59 MIL/uL (4.5-6.0)
[2020-10-08 07:42] LABS: CALCIUM, SERUM 8.9 mg/dL (8.5-10.1); CARBON DIOXIDE 17 mmol/L (21-32); CHLORIDE 114 mmol/L (98-107); CREATININE 1.8 mg/dL (0.6-1.3); GLUCOSE 163 mg/dL (74-106); PHOSPHORUS 2.9 mg/dL (2.5-4.9); POTASSIUM 4.2 mmol/L (3.5-5.1); SODIUM SERUM 146 mmol/L (136-145); UREA NITROGEN, BLOOD 50 mg/dL (7-18)
--- NOTE | 2020-10-08 08:08 | NUR ---
HEALTH ADVISOR OPENING NOTE PATIENT IS IN BED RESTING. PATIENT IS IN NO ACUTE DISTRESS. NO SOB NOTED. PATIENT IS ON OXYGEN NON-REBREATHER MASK ON 15L. HOB ELEVATED. PATIENT IS ON CHIEF NUCLEAR MEDICINE TECHNOLOGIST READING SINUS TACHY 114 WITH OCCASIONAL PACs.. SAFETY MEASURES ARE IN PLACE. PATIENTS BED IS LOCKED AND IN THE LOWEST POSITION WITH BED ALARM ON. SIDE RAILS ARE UP, CALL LIGHT WITHIN REACH. WILL CONTINUE TO MONITOR THROUGH OUT THE SHIFT.
[2020-10-08 08:11] LABS: WHITE BLOOD COUNT (AUTO) 32.7 K/uL (4.3-11.0)
[2020-10-08] MEDS: FINASTERIDE (5 MG) 5 MG TABLET PO SCH (08:42)
[2020-10-08] MEDS: AMLODIPINE BESYLATE 5 MG TABLET PO SCH (08:43)
[2020-10-08] MEDS: PANTOPRAZOLE 40 MG TABLET.DR PO SCH (08:43)
[2020-10-08] MEDS: GABAPENTIN 300 MG CAPSULE PO SCH ×3 (08:43→18:07)
[2020-10-08] MEDS: DEXAMETHASONE SOD PHOSPHATE 10 MG/ML VIAL IV SCH (08:43)
[2020-10-08] MEDS: APIXABAN 2.5 MG TABLET PO SCH ×2 (08:45→18:08)
[2020-10-08 11:28] LABS: LYMPHOCYTES % (MANUAL) 2 % (16-48); MONOCYTES % (MANUAL) 3 % (0-11.0); NEUTROPHILS % (MANUAL) 95 (42-76)
--- NOTE | 2020-10-08 11:32 | NUR ---
TELE/RN NOTE DNP BK RIZVI IS AWARE OF TODAYS WBC LEVEL 32.7, PER DNP NO NEW ORDERS.
--- NOTE | 2020-10-08 17:26 | NUR ---
TELE/RN NOTE PATIENT IS ON 15 L NON REBREATHER MASK, DESATING TO 84% OXYGEN LEVEL, DNP BK RIZVI IS MADE AWARE. NEW ORDER STAT ABG, AND CHEST XRAY
[2020-10-08 17:46] LABS: ABG BASE EXCESS -8.2 mmol/L; ABG OXYGEN SATURATION 79.2 % (92.0-98.5); ABG PCO2 19.9 mmHg (35.0-45.0); ABG PH 7.442 (7.350-7.450); ABG PO2 43.5 mmHg (75.0-100.0); AaDO2 649.6 mmHg; COHb 0.5 % (0.5-1.5); MetHb 0.4 % (0.0-1.5); O2Hb 78.5 % (94.0-97.0); SITE, ABG Right Radial; VENT MODE, BG NRB
--- NOTE | 2020-10-08 17:57 | NUR ---
TELE/RN NOTE DNP BELKYS IS MADE AWARE OF STAT ABG RESULT. WAITING FOR NEW ORDERS. AT THIS TIME THE PATIENT`S SATURATION IS 85% WITH 15 L NONREBREATHER. WILL CONTINUE TO MONITOR THE PATIENT.
--- NOTE | 2020-10-08 18:11 | NUR ---
TELE/RN NOTE DNP BELKYS IS MADE AWARE OF CHEST XRAY RESULT. WAITING FOR BUSH HOG OPERATOR ORDERS.
--- NOTE | 2020-10-08 18:35 | NUR ---
GLASS SETTER CLOSING NOTE PATIENT IS ON 15L NON-REBREATHER MASK. PATIENTS OXYGEN SATURATION DESATING TO 83%. KAYKAY RIZVI IS AWARE. PLACED AN ORDER FOR STAT ABGS AND CHEST XRAY. KAYKAY RIZVI IS AWARE OF RESULTS. WAITING ON FURTHER ORDERS. PATIENT IS ON BRASS CLEANER READING SINUS TACH 117 WITH PAC. SAFETY MEASURES ARE IN PLACE. BED IN THE LOWEST POSITION, WITH BED ALARM ON. CALL LIGHT WITHIN REACH. ENDORSE PATIENT TO THE GANG SUPERVISOR FOR ROX.
--- NOTE | 2020-10-08 18:42 | NUR ---
TELE/RN NOTE PAGED KAYKAY RIZVI AGAIN. WAITING FOR CALL BACK AND NEW ORDERS. THE PATIENT IS SATURATING AT 83% WITH OXYGEN DELIVERING AT 15L/MIN VIA NONREBREATHER.
--- NOTE | 2020-10-08 19:10 | NUR ---
scrap metal burner open notes received patient in bed sp02 88-89%, on 15 L nonrebreather, awake alert and oriented x2, noted with some confusion, on cafeteria monitor sr 71, iv site to right fa #20sl, intact and patent, oriented to staff and call light and kept within reach, low bed and locked, bed alarm in place, awaiting further orders for 02 from . will continue to monitor, pt is verbally responsive. Addendum: 10/09/20 at 0632 by FACUNDO HART RN clarification afib 71
--- NOTE | 2020-10-08 19:20 | NUR ---
TELE/RN NOTE SURFACER BELKYS IS AWARE OF STAT ABG AND XRAY RESULT AND HE SAID HE WILL PLACE AN ORDER SOON. HAT MEASURER NURSE IS MADE AWARE TO FOLLOW UP UNTIL ORDER IS RECEIVED.
--- NOTE | 2020-10-08 19:25 | NUR ---
continuous yarn dyeing machine operator notes made dr tamara marshall made aware of patient 02 at 80-86%. on 15 l non rebreather. new order for highflow 60 liters, rt also made aware, new order noted and carried out.
[2020-10-08 20:00] VITALS: BP 127/61
--- NOTE | 2020-10-08 20:34 | NUR ---
industrial furnace fabricator notes per rt high flow machine available is at 40%. 15 l non rebreather also in place, sp02 at 91-93%. will continue to monitor.
--- NOTE | 2020-10-08 22:15 | NUR ---
hose turner notes pt keeps removing medical tubing including O2 cannula on high flow, made sandrine aware for possible restraints, patient is alert and oriented x2 with confusion despite redirection pt still removed o2 tubing, new order read back and carried out for soft bilateral wrist restraints.
[2020-10-08] MEDS: DOCUSATE SODIUM 100 MG CAPSULE PO SCH (22:17)
[2020-10-09] VITALS (9 sets, daily range): BP systolic 128–153; BP diastolic 68–97
[2020-10-09] MEDS: DILTIAZEM HCL 30 MG TABLET PO SCH ×5 (00:15→23:49)
--- NOTE | 2020-10-09 06:27 | NUR ---
internal investigator closing notes patient in bed awake alert x2 and verbally responsive cuurenlty on 40 l via highflow and 15 l via nonbreather, sp02 100%, tolerated 02 well throughout shift, on endless track vehicle supervisor afib 102, iv site to right fa #20 sl, intact and patent, repositioned and patient is also able to assist with turning, skin remains intact heels offloaded, no redness, small sips of fluids and ice chips offered and tolerated well ,call light kept within reach, low bed and locked, bed alarm in place, will continue to monitor, pt is verbally responsive. remains on bilateral soft wrist restraints due to pt removing 02 tubing than desats, skin checks done wnl, pulses palpable, skin wnl, circulation present, restraints were also released thoughout shift. all needs attended at this time will continue to monitor and attend to needs.
[2020-10-09 06:40] LABS: BASOPHILS # (AUTO) 1.5 /CMM (0.0-0.2); HEMATOCRIT 39 % (39-51); HEMOGLOBIN 13.2 g/dL (13.5-17.5); LYMPHOCYTES # (AUTO) 0.2 /CMM (0.8-4.8); LYMPHOCYTES % (AUTO) 0.6 % (20.0-44.0); MEAN CORPUSCULAR HGB CONC 34 g/dl (31.0-36.0); MEAN CORPUSCULAR VOLUME 90 fL (80-96); MONOCYTES # (AUTO) 0.5 /CMM (0.1-1.30); MONOCYTES % (AUTO) 1.8 % (2.0-12.0); NEUTROPHILS # (AUTO) 24.8 /CMM (1.8-8.9); NEUTROPHILS % (AUTO) 92.1 % (43.0-81.0); PLATELET COUNT (AUTO) 188 /CMM (150-450); RED BLOOD CELL COUNT(AUTO) 4.33 MIL/uL (4.5-6.0); WHITE BLOOD COUNT (AUTO) 26.9 K/uL (4.3-11.0)
[2020-10-09 06:41] LABS: BASOPHILS % (AUTO) 5.5 % (0.0-2.0)
[2020-10-09 07:06] LABS: CALCIUM, SERUM 8.7 mg/dL (8.5-10.1); CARBON DIOXIDE 17 mmol/L (21-32); CHLORIDE 118 mmol/L (98-107); CREATININE 2.2 mg/dL (0.6-1.3); GLUCOSE 148 mg/dL (74-106); MAGNESIUM 2.4 mg/dL (1.8-2.4); PHOSPHORUS 3.3 mg/dL (2.5-4.9); POTASSIUM 4.4 mmol/L (3.5-5.1); SODIUM SERUM 150 mmol/L (136-145); UREA NITROGEN, BLOOD 64 mg/dL (7-18)
[2020-10-09] MEDS: PANTOPRAZOLE 40 MG TABLET.DR PO SCH (07:56)
--- NOTE | 2020-10-09 08:00 | NUR ---
RN Opening note Received patient in bed, AO x 2 able to responds all stimuli, Pt does no appears pain or distress. Skin is warm to touch keep clean/dry intact IV site, respiratory even and unlabored with oxygen 15L NRM and High Flow 40% O2sat 96%. Pt is on soft restrain on bilateral wrist due to pulling out oxygen, providing release soft wrist restrain frequently for nourishment and fluid supply. Kept locked bed with elevated HOB for aspiration precaution and ensure airway and lowest bed foe safety. Call light within reach, will continue to monitor.
[2020-10-09] MEDS: DEXAMETHASONE SOD PHOSPHATE 10 MG/ML VIAL IV SCH (08:36)
[2020-10-09] MEDS: AMLODIPINE BESYLATE 5 MG TABLET PO SCH (08:36)
[2020-10-09] MEDS: FINASTERIDE (5 MG) 5 MG TABLET PO SCH (08:36)
[2020-10-09] MEDS: GABAPENTIN 300 MG CAPSULE PO SCH ×3 (08:36→17:16)
[2020-10-09] MEDS: APIXABAN 2.5 MG TABLET PO SCH ×2 (08:38→17:16)
[2020-10-09 09:53] LABS: MONOCYTES % (MANUAL) 2 % (0-11.0); MYELOCYTES % 1 % (0-0); NEUTROPHILS % (MANUAL) 97 (42-76)
[2020-10-09 09:55] LABS: LYMPHOCYTES % (MANUAL) 0 % (16-48)
--- NOTE | 2020-10-09 18:25 | NUR ---
RN closing Patient in bed resting, does no appears pain or discomfort. Skin is warm to touch kepp clean/dry, intact site on right FA. Respiratory even and unlabored with oxygen high flow 40L and NRM at 15L O2sat 93%. Kept elevated HOB for ensure air way and aspiration precaution and lowest bed for safety. Call light within reach, will endorse scouts.
--- NOTE | 2020-10-09 19:00 | NUR ---
Patient is on Plasma, no s/s of reaction observed:no skin rash or fever, endorsed date night sitter. Will continue to monitor closely for safety.
--- NOTE | 2020-10-09 19:30 | NUR ---
roping tender opening notes Received Pt from morning nurse. Pt is resting in bed comfortably. Pt is alert and orientedX2. Pt speaks Cymraes and able to make needs known. Respiration on high flow 40 L and non rebreather mask 15 L. No SOB. No S/s of distress noted. Tele monitor showed afib uncontolled HR at 105 bpm. Iv site at RFA # 20 is clean, intact and SL. Pt just had convalescent plasma transfusion. Pt tolerated well. Safety precautions is maintained. Bed at low positon, brakes locked, side rails upX2, hob elevated, urinal at the bedside and call light is within reach. Will continue to monitor.
--- NOTE | 2020-10-09 20:15 | NUR ---
supervisor sulfuric acid plant notes Pt's family ( and daughter) called and asked about Pt's condition. Informed Pt's and daughter that Pt is stable and received plasma transfusion today. Pt tolerating well and resting in bed comfortably. No S/s of distress noted. Pt's family appreciate the info. 's named is Keiladamian Lynch ([phone]). Daughter named is Sandor.
[2020-10-09] MEDS: DOCUSATE SODIUM 100 MG CAPSULE PO SCH (22:43)
[2020-10-10] VITALS: BP 118/64
[2020-10-10 04:00] VITALS: BP 123/83
[2020-10-10] MEDS: DILTIAZEM HCL 30 MG TABLET PO SCH ×3 (05:03→17:21)
--- NOTE | 2020-10-10 05:50 | NUR ---
PATIENT RECEIVED ON HFNC 40L 100%, TOLERATING WITH NO DISTRESS NOTED. AMBU BAG AT BEDSIDE. VAPOTHERM ALARM AUDIBLE AND VISIBLE. Addendum: 10/10/20 at 0553 by RIYA BUSTAMANTE RT Amended: Links added.
--- NOTE | 2020-10-10 07:00 | NUR ---
flight teacher closing notes Pt is resting in bed comfortably. Pt is alert and orientedX2. Pt speaks Tajik and able to make needs known. Respiration on high flow 40 L and non rebreather mask 15 L. No SOB. No S/s of distress noted. Vs is stable. Afebrile. Tele monitor showed afib uncontolled HR at 109 bpm. Iv site at L hand # 22 is clean, intact and SL. Bilateral soft wrist restraint are intact, skin is warm to touch and circulation is check Q 2hr. Safety precautions is maintained. Bed at low position, brakes locked, side rails upX2, hob elevated, and call light is within reach. Will endorse to morning nurse for ROX.
[2020-10-10 07:26] LABS: BASOPHILS % (AUTO) 0.1 % (0.0-2.0); HEMATOCRIT 39 % (39-51); HEMOGLOBIN 12.6 g/dL (13.5-17.5); LYMPHOCYTES # (AUTO) 0.2 /CMM (0.8-4.8); LYMPHOCYTES % (AUTO) 0.6 % (20.0-44.0); MEAN CORPUSCULAR HGB CONC 33 g/dl (31.0-36.0); MEAN CORPUSCULAR VOLUME 93 fL (80-96); MONOCYTES # (AUTO) 0.7 /CMM (0.1-1.30); MONOCYTES % (AUTO) 2.9 % (2.0-12.0); NEUTROPHILS # (AUTO) 23.2 /CMM (1.8-8.9); NEUTROPHILS % (AUTO) 96.4 % (43.0-81.0); PLATELET COUNT (AUTO) 145 /CMM (150-450); WHITE BLOOD COUNT (AUTO) 24.1 K/uL (4.3-11.0)
--- NOTE | 2020-10-10 07:30 | NUR ---
TELE/RN OPENING NOTE Received patient resting in bed, A&O x 2, Ecuadorean speaking. No complaints of pain/discomfort at this time. Breathing even and non-labored on High flow oxygen 40 L + 15 L nonrebreather mask, saturating at 95%. No respiratory or cardiac distress noted. On tele monitor, reading uncontrolled a fib 86. IV access noted on L hand #22, patent and intact, and flushing well. Bilateral soft wrist restraints noted, circulation and sensation remain intact on both upper extremities. Bed locked to its lowest position, side rails x 2 up, call light in hand. Will continue with current medical management.
--- NOTE | 2020-10-10 07:30 | NUR ---
TELE/RN NOTE Collected urine sample, called lab for case picker.
[2020-10-10 07:32] LABS: CALCIUM, SERUM 8.4 mg/dL (8.5-10.1); CARBON DIOXIDE 17 mmol/L (21-32); CHLORIDE 118 mmol/L (98-107); CREATININE 2.7 mg/dL (0.6-1.3); GLUCOSE 170 mg/dL (74-106); MAGNESIUM 2.8 mg/dL (1.8-2.4); PHOSPHORUS 4.3 mg/dL (2.5-4.9); POTASSIUM 4.4 mmol/L (3.5-5.1); SODIUM SERUM 149 mmol/L (136-145)
[2020-10-10 07:39] LABS: UREA NITROGEN, BLOOD 87 mg/dL (7-18)
[2020-10-10 08:00] VITALS: BP 127/74
--- NOTE | 2020-10-10 08:18 | NUR ---
BK RIZVI NOTIFIED PATIENT BUN 87 NO NEW ORDERS.
[2020-10-10 08:30] LABS: LYMPHOCYTES % (MANUAL) 5 % (16-48); MONOCYTES % (MANUAL) 3 % (0-11.0); NEUTROPHILS % (MANUAL) 91 (42-76)
--- NOTE | 2020-10-10 09:00 | NUR ---
TELE/RN NOTE Condom catheter in place for strict I&O order.
[2020-10-10] MEDS: PANTOPRAZOLE 40 MG TABLET.DR PO SCH (09:21)
[2020-10-10] MEDS: GABAPENTIN 300 MG CAPSULE PO SCH ×3 (09:21→17:21)
[2020-10-10] MEDS: DEXAMETHASONE SOD PHOSPHATE 10 MG/ML VIAL IV SCH (09:21)
[2020-10-10] MEDS: FINASTERIDE (5 MG) 5 MG TABLET PO SCH (09:21)
[2020-10-10] MEDS: AMLODIPINE BESYLATE 5 MG TABLET PO SCH (09:22)
[2020-10-10] MEDS: APIXABAN 2.5 MG TABLET PO SCH ×2 (09:23→17:22)
[2020-10-10 11:58] LABS: CREATININE, URINE 65.3 MG/DL (30.0-125.0); URINE TOTAL PROTEIN 125.8 mg/dL (0-11.9)
[2020-10-10 12:00] VITALS: BP 113/69
[2020-10-10 12:28] LABS: BILIRUBIN,URINE NEGATIVE (NEGATIVE); COLOR,URINE YELLOW (YELLOW); LEUKOCYTE ESTERASE ,URINE NEGATIVE (NEGATIVE); NITRITE, URINE NEGATIVE (NEGATIVE); PROTEIN,URINE 30 mg/dl (NEGATIVE); UGLUCOSE NEGATIVE (NEGATIVE); UROBILINOGEN,URINE 0.2 EU/dL (0.2)
[2020-10-10 12:50] LABS: BACTERIA,URINE Rare /HPF (None Seen); RBC,URINE 0-2 /HPF (0-2); SQUAMOUS EPITHELIAL CELL,UR Rare /HPF (None Seen); WBC,URINE 0-2 /HPF (0-3)
[2020-10-10 13:29] LABS: EOSINOPHIL,URINE None Seen
[2020-10-10 16:00] VITALS: BP 111/64
--- NOTE | 2020-10-10 18:35 | NUR ---
TELE/RN CLOSING NOTE Patient sleeping in bed, A&O x 2, easily arousable to touch and verbal stimulation. All needs met and attended to. No complaints of pain/discomfort throughout shift. Breathing even and non-labored on High flow oxygen 40 L, FiO2 100%+ 15 L nonrebreather mask, saturating at 90-92%. No respiratory or cardiac distress noted. On tele monitor, reading controlled a fib 92. IV access noted on L hand #22, patent and intact, and flushing well. Bilateral soft wrist restraints noted, circulation and sensation remain intact on both upper extremities. Fall precautions maintained. Will endorse to phlebotomy services representative nurse. Addendum: 10/10/20 at 1851 by STAR NARVAEZ RN Condom catheter in place, draining yellow urine well.
[2020-10-10 20:00] VITALS: BP 135/70
[2020-10-10] MEDS: DOCUSATE SODIUM 100 MG CAPSULE PO SCH (22:20)
[2020-10-11] VITALS: BP 131/64
[2020-10-11] MEDS: DILTIAZEM HCL 30 MG TABLET PO SCH ×4 (01:12→17:01)
[2020-10-11 04:00] VITALS: BP 113/64
--- NOTE | 2020-10-11 07:30 | NUR ---
TECHNICIAN SUPPORT ASSOCIATION NOTES PT IN BED, AWAKE, ALERT AND VERBALLY RESPONSIVE, NOT IN DISTRESS, DENIES PAIN, ON HIGH FLOW N/C AND NR MASK, NO SOB NOTED, KEPT WARM AND COMFORTABLE IN BED.
[2020-10-11 08:00] VITALS: BP 104/64
[2020-10-11 08:44] LABS: BASOPHILS % (AUTO) 0.2 % (0.0-2.0); HEMATOCRIT 38 % (39-51); HEMOGLOBIN 12.6 g/dL (13.5-17.5); LYMPHOCYTES # (AUTO) 0.2 /CMM (0.8-4.8); LYMPHOCYTES % (AUTO) 0.7 % (20.0-44.0); MEAN CORPUSCULAR HGB CONC 33 g/dl (31.0-36.0); MEAN CORPUSCULAR VOLUME 92 fL (80-96); MONOCYTES % (AUTO) 0.2 % (2.0-12.0); NEUTROPHILS # (AUTO) 22.2 /CMM (1.8-8.9); NEUTROPHILS % (AUTO) 98.9 % (43.0-81.0); PLATELET COUNT (AUTO) 111 /CMM (150-450); RED BLOOD CELL COUNT(AUTO) 4.14 MIL/uL (4.5-6.0); WHITE BLOOD COUNT (AUTO) 22.4 K/uL (4.3-11.0)
[2020-10-11] MEDS: AMLODIPINE BESYLATE 5 MG TABLET PO SCH (09:00)
[2020-10-11 09:13] LABS: CALCIUM, SERUM 8.5 mg/dL (8.5-10.1); CARBON DIOXIDE 20 mmol/L (21-32); CHLORIDE 124 mmol/L (98-107); CREATININE 3.3 mg/dL (0.6-1.3); GLUCOSE 160 mg/dL (74-106); MAGNESIUM 3.1 mg/dL (1.8-2.4); PHOSPHORUS 5.2 mg/dL (2.5-4.9); POTASSIUM 5.4 mmol/L (3.5-5.1); SODIUM SERUM 155 mmol/L (136-145)
[2020-10-11 09:16] LABS: UREA NITROGEN, BLOOD 113 mg/dL (7-18)
[2020-10-11] MEDS: DEXAMETHASONE SOD PHOSPHATE 10 MG/ML VIAL IV SCH (09:58)
[2020-10-11] MEDS: PANTOPRAZOLE 40 MG TABLET.DR PO SCH (09:58)
[2020-10-11] MEDS: FINASTERIDE (5 MG) 5 MG TABLET PO SCH (09:58)
[2020-10-11] MEDS: GABAPENTIN 300 MG CAPSULE PO SCH ×3 (09:58→16:58)
[2020-10-11] MEDS: APIXABAN 2.5 MG TABLET PO SCH ×2 (10:00→17:02)
[2020-10-11 12:00] VITALS: BP 134/80
[2020-10-11] MEDS ORDERED: FUROSEMIDE 100 MG/10 ML VIAL IV ONE (12:00)
[2020-10-11] MEDS ORDERED: SODIUM POLYSTYRENE SULFONATE 15 G/60 ML BOTTLE PO ONE (12:00)
[2020-10-11] MEDS ORDERED: IV D5W 1,000 ML IV ONE (12:00)
[2020-10-11 14:14] LABS: LYMPHOCYTES % (MANUAL) 1 % (16-48); MONOCYTES % (MANUAL) 2 % (0-11.0); NEUTROPHILS % (MANUAL) 97 (42-76)
[2020-10-11 15:50] LABS: CALCIUM, SERUM 7.8 mg/dL (8.5-10.1); CARBON DIOXIDE 17 mmol/L (21-32); CHLORIDE 123 mmol/L (98-107); CREATININE 3.3 mg/dL (0.6-1.3); GLUCOSE 225 mg/dL (74-106); POTASSIUM 4.8 mmol/L (3.5-5.1)
[2020-10-11 15:51] LABS: UREA NITROGEN, BLOOD 117 mg/dL (7-18)
[2020-10-11 15:53] LABS: SODIUM SERUM 157 mmol/L (136-145)
[2020-10-11 16:00] VITALS: BP 127/70
--- NOTE | 2020-10-11 18:32 | NUR ---
EMPLOYMENT DIRECTOR NOTES PT IN BED, ASLEEP, EASY TO AROUSE, ALERT AND VERBALLY RESPONSIVE, ABLE TO MAKE NEEDS KNOWN, ON HIGH FLOW AND NON REBREATHER MASK ORDERED, NO SOB NOTED, CONDOM CATH IN PLACE, DRAINING WELL WITH CLEAR, YELLOW URINE, PM MEDS GIVEN, ALL NEEDS ATTENDED.
--- NOTE | 2020-10-11 19:10 | NUR ---
COMPUTER CLERK OPENING NOTES RECEIVED PATIENT IN BED S;EEPING BUT EASILY AROUSABLE , VERBALLY RESPONSIVE ,ALERT AND ORIENTED X2 ON BILATERAL SOFT WRIST RESTRAINTS, SKIN CHECK DONE, SKIN WNL , PULSES PALPABLE, RESPIRATIONS EVEN AND UNLABORED WITH EQUAL RISE AND FALL OF CHEST, ON HIGH FLOW 02 40LPM AND 15 L VIA NRB MASK TOLERATING WELL AT THIS TIME, , IV SITE TO LEFT HAND #22 G INTACT AND PATENT, NO REDNESS, NO INFILTRATION PRESENT, ORIENTED TO STAFF AND CALL LIGHT AND KEPT WITHIN REACH, SAFETY PRECAUTIONS MAINTAINED LOW BED AND LOCKED BED ALARM IN PLACE, WILL CONTINUE TO MONITOR AND ATTEND TO NEEDS.
[2020-10-11 20:00] VITALS: BP 112/81
[2020-10-11] MEDS: DOCUSATE SODIUM 100 MG CAPSULE PO SCH (21:29)
[2020-10-12] VITALS: BP 102/70
--- NOTE | 2020-10-12 00:40 | NUR ---
rn integrated notes upon providing repositioning and perineal care, noted what appears to be blood in stool, moderate amount, red in color foul odor. hospitalist sandrine made aware with new order for cbc stat. current v.s are 102/70,101,24,95%, 98.1 will continue to monitor and awake results. patient is awake verbally responsive and is able to follow simple directions and make needs known.
--- NOTE | 2020-10-12 00:40 | NUR ---
commercial real estate attorney notes pt had large bloody stool
--- NOTE | 2020-10-12 01:05 | NUR ---
product development intern notes hospitalist sandrine aware of stat cbc results. with new order repeat cbc in am .
[2020-10-12 01:08] LABS: BASOPHILS % (AUTO) 0.1 % (0.0-2.0); HEMATOCRIT 37 % (39-51); HEMOGLOBIN 11.9 g/dL (13.5-17.5); LYMPHOCYTES # (AUTO) 0.2 /CMM (0.8-4.8); LYMPHOCYTES % (AUTO) 0.8 % (20.0-44.0); MEAN CORPUSCULAR HGB CONC 33 g/dl (31.0-36.0); MEAN CORPUSCULAR VOLUME 92 fL (80-96); MONOCYTES % (AUTO) 4.4 % (2.0-12.0); NEUTROPHILS % (AUTO) 94.7 % (43.0-81.0); PLATELET COUNT (AUTO) 109 /CMM (150-450); RED BLOOD CELL COUNT(AUTO) 4.01 MIL/uL (4.5-6.0); WHITE BLOOD COUNT (AUTO) 22.1 K/uL (4.3-11.0)
[2020-10-12 04:29] VITALS: BP 114/68
[2020-10-12] MEDS: DILTIAZEM HCL 30 MG TABLET PO SCH ×5 (05:42→23:37)
--- NOTE | 2020-10-12 06:20 | NUR ---
GRANULATING MACHINE OPERATOR CLOSING NOTES PATIENT IN BED SLEEPING BUT EASILY AROUSABLE , VERBALLY RESPONSIVE ,ALERT AND ORIENTED X2 ON BILATERAL SOFT WRIST RESTRAINTS, SKIN CHECK DONE, SKIN WNL , PULSES PALPABLE, RESPIRATIONS EVEN AND UNLABORED WITH EQUAL RISE AND FALL OF CHEST, ON HIGH FLOW 02 40LPM AND 15 L VIA NRB MASK TOLERATING WELL AT THIS TIME AND THROUGHOUT SHIFT , IV SITE TO LEFT HAND #22 G INTACT AND PATENT, NO REDNESS, NO INFILTRATION PRESENT,CALL LIGHT KEPT WITHIN REACH, SAFETY PRECAUTIONS MAINTAINED LOW BED AND LOCKED BED ALARM IN PLACE, PERINEAL CARE , REPOSITIONING AND FLUIDS OFFERED, WILL CONTINUE TO MONITOR AND ATTEND TO NEEDS. NO BM OR BLOOD NOTED AT THIS TIME.
--- NOTE | 2020-10-12 06:23 | NUR ---
ON EXTERIOR WORK HELPER AFIB 101
--- NOTE | 2020-10-12 07:30 | NUR ---
RN OPENING NOTE PT RESTING IN BED COMFORTABLY ON HIGH FLOW OS @ 40LPM WITH NRB @ 15LPM, NO SIGNS OF RESP DISTRESS OR SOB. PT DENIES PAIN. PT HAS CONDOM CATH INTACT AND DRAINING TO GRAVITY. PT ON BILAT SOFT WRIST RESTRAINT, CMS CHECKED AND INTACT. PT HAS LT HAND #22 SL, FLUSHED, INTACT AND PATENT WITH NO SIGNS OF INFILTRATION OR INFECTION. ALL PT SAFETY PRECAUTIONS IN PLACE. WILL CONTINUE TO MONITOR
[2020-10-12 07:52] LABS: HEMATOCRIT 35 % (39-51); HEMOGLOBIN 11.5 g/dL (13.5-17.5); LYMPHOCYTES # (AUTO) 0.2 /CMM (0.8-4.8); LYMPHOCYTES % (AUTO) 0.9 % (20.0-44.0); MEAN CORPUSCULAR HGB CONC 33 g/dl (31.0-36.0); MEAN CORPUSCULAR VOLUME 92 fL (80-96); MONOCYTES % (AUTO) 0.1 % (2.0-12.0); PLATELET COUNT (AUTO) 101 /CMM (150-450); RED BLOOD CELL COUNT(AUTO) 3.79 MIL/uL (4.5-6.0); WHITE BLOOD COUNT (AUTO) 22.2 K/uL (4.3-11.0)
[2020-10-12 07:56] LABS: ABG OXYGEN SATURATION 98.1 % (92.0-98.5); ABG PCO2 26.1 mmHg (35.0-45.0); ABG PH 7.411 (7.350-7.450); ABG PO2 119.5 mmHg (75.0-100.0); AaDO2 567.4 mmHg; COHb 0.3 % (0.5-1.5); MetHb 0.1 % (0.0-1.5); O2Hb 97.7 % (94.0-97.0); SITE, ABG Right Radial; VENT MODE, BG VAPOTHERM 40L 100% NRB
[2020-10-12 08:00] VITALS: BP 113/72
[2020-10-12] MEDS: PANTOPRAZOLE 40 MG TABLET.DR PO SCH (09:53)
[2020-10-12] MEDS: FINASTERIDE (5 MG) 5 MG TABLET PO SCH (09:53)
[2020-10-12] MEDS: DEXAMETHASONE SOD PHOSPHATE 10 MG/ML VIAL IV SCH (09:53)
[2020-10-12] MEDS: AMLODIPINE BESYLATE 5 MG TABLET PO SCH (09:55)
[2020-10-12] MEDS: GABAPENTIN 300 MG CAPSULE PO SCH ×3 (09:55→17:35)
[2020-10-12 12:00] VITALS: BP 116/84
[2020-10-12 12:47] LABS: ALANINE AMINOTRANSFERASE 25 U/L (12-78); ALBUMIN 1.5 g/dL (3.4-5.0); ALKALINE PHOSPHATASE 118 U/L (46-116); ASPARTATE AMINOTRANSFERASE 22 U/L (15-37); BILIRUBIN,TOTAL 0.4 mg/dL (0.2-1.0); CALCIUM, SERUM 7.1 mg/dL (8.5-10.1); CARBON DIOXIDE 19 mmol/L (21-32); CHLORIDE 118 mmol/L (98-107); CREATININE 3.5 mg/dL (0.6-1.3); GLUCOSE 133 mg/dL (74-106); MAGNESIUM 2.8 mg/dL (1.8-2.4); PHOSPHORUS 5.8 mg/dL (2.5-4.9); POTASSIUM 4.5 mmol/L (3.5-5.1); SODIUM SERUM 150 mmol/L (136-145); TOTAL PROTEIN, SERUM 5.1 g/dL (6.4-8.2)
[2020-10-12 12:52] LABS: UREA NITROGEN, BLOOD 130 mg/dL (7-18)
--- NOTE | 2020-10-12 13:00 | NUR ---
RN NOTE RELEASED PT FROM BILAT SOFT WRIST RESTRAINTS AFTER SPEAKING TO PT AND PER MY JUDGEMENT, PT IS ALERT ENOUGH AND WILL COMPLY WITH TREATMENT AND NOT PULL OUT TUBING/IV LINES. WILL MONITOR CLOSELY
[2020-10-12] MEDS ORDERED: APIXABAN 2.5 MG TABLET PO SCH (14:00)
[2020-10-12 16:00] VITALS: BP 118/59
--- NOTE | 2020-10-12 18:39 | NUR ---
RN NOTE NOTIFIED DR SOLIS OF BLOODY STOOL TO D/C PADILLA ORDER PLACED TODAY AT 1400 Addendum: 10/12/20 at 2111 by PABLO TRAN RN PADILAL HARDING
--- NOTE | 2020-10-12 19:00 | NUR ---
RN CLOSING NOTE NO CHANGES TO PT STATUS DURING SHIFT. PT IN STABLE CONDITION. WILL ENDORSE ROX TO ONCOMING NURSE
[2020-10-12 20:00] VITALS: BP 102/74
--- NOTE | 2020-10-12 20:00 | NUR ---
RN NOTES RECEIVED PT IN BED ALERT ORIENTED X 2. WITH NON REBREATHER AND HFNC 40L. NO DISTRESS NOTED. NO SIGNS OF PAIN OR DISCOMFORT. WITH LEFT HAND IV, PATENT AND INTACT, FLUSHED. ALL SAFETY MEASURES IMPLEMENTED PER PROTOCOL. CALL LIGHT WITHIN REACH. BED LOCKED IN LOWEST POSITION. SIDE RAILS UP X 2.
--- NOTE | 2020-10-12 20:26 | NUR ---
RT NOTE PT RECEIVED ON VAPOTHERM @ 40LPM @ 100% WITH NONBREATHER MASK @ 100%. WATER BAG FULL. PT CURRENTLY ON SEMI-WILSON POSITION EATING. NO RESPIRATORY DISTRESS NOTED. WILL CONTINUE TO MONITOR CLOSELY. Addendum: 10/12/20 at 2027 by KRISTEN ADDISON RT Amended: Links added.
[2020-10-12] MEDS: DOCUSATE SODIUM 100 MG CAPSULE PO SCH (22:42)
--- NOTE | 2020-10-13 01:02 | NUR ---
RT NOTE REMOVED 100% NONREBREATHER MASK. NO DISTRESS NOTED AT THIS TIME. KARLA GREEN AWARE. WILL CONTINUE TO MONITOR CLOSELY. Addendum: 10/13/20 at 0103 by KRISTEN ADDISON RT Amended: Links added.
[2020-10-13 01:28] VITALS: BP 123/69
--- NOTE | 2020-10-13 02:00 | NUR ---
RN NOTES PT SLEEPING, EASILY AROUSABLE BY BY VERBAL STIMULI. ON HFNC 60L, NO RESP DISTRESS NOTED.
[2020-10-13 04:00] VITALS: BP 102/65
[2020-10-13 06:11] LABS: BASOPHILS # (AUTO) 0.1 /CMM (0.0-0.2); BASOPHILS % (AUTO) 0.3 % (0.0-2.0); HEMATOCRIT 33 % (39-51); HEMOGLOBIN 10.9 g/dL (13.5-17.5); LYMPHOCYTES # (AUTO) 0.2 /CMM (0.8-4.8); LYMPHOCYTES % (AUTO) 0.8 % (20.0-44.0); MEAN CORPUSCULAR HGB CONC 33 g/dl (31.0-36.0); MEAN CORPUSCULAR VOLUME 92 fL (80-96); MONOCYTES % (AUTO) 0.2 % (2.0-12.0); NEUTROPHILS # (AUTO) 22.4 /CMM (1.8-8.9); NEUTROPHILS % (AUTO) 98.7 % (43.0-81.0); PLATELET COUNT (AUTO) 108 /CMM (150-450); WHITE BLOOD COUNT (AUTO) 22.6 K/uL (4.3-11.0)
[2020-10-13] MEDS: DILTIAZEM HCL 30 MG TABLET PO SCH ×3 (06:13→17:05)
[2020-10-13 06:26] LABS: ALANINE AMINOTRANSFERASE 27 U/L (12-78); ALBUMIN 1.6 g/dL (3.4-5.0); ALKALINE PHOSPHATASE 122 U/L (46-116); ASPARTATE AMINOTRANSFERASE 26 U/L (15-37); BILIRUBIN,TOTAL 0.4 mg/dL (0.2-1.0); CALCIUM, SERUM 7.1 mg/dL (8.5-10.1); CARBON DIOXIDE 17 mmol/L (21-32); CHLORIDE 115 mmol/L (98-107); CREATININE 3.8 mg/dL (0.6-1.3); GLUCOSE 160 mg/dL (74-106); MAGNESIUM 2.8 mg/dL (1.8-2.4); PHOSPHORUS 7.5 mg/dL (2.5-4.9); POTASSIUM 4.9 mmol/L (3.5-5.1); SODIUM SERUM 147 mmol/L (136-145); TOTAL PROTEIN, SERUM 5.1 g/dL (6.4-8.2)
[2020-10-13 06:33] LABS: UREA NITROGEN, BLOOD 149 mg/dL (7-18)
--- NOTE | 2020-10-13 07:00 | NUR ---
RN NOTES PATIENT REMAINS IN BED. NOT IN ANY DISTRESS NOTED. HFNC 40L TOLERATING WELL. LHAND IV PATENT AND INTACT. ISOLATION PRECAUTION MAINTAINED. ATTENDED TO NEEDS. ALL SAFETY MEASURES IMPLEMENTED PER PROTOCOL. CALL LIGHT WITHIN REACH. BED LOCKED IN LOWEST POSITION. SIDE RAILS UP X 2. WILL ENDORSE TO NEXT SHIFT NURSE.
--- NOTE | 2020-10-13 07:07 | NUR ---
RN OPENING NOTES RECEIVED PT AWAKE IN BED AT THIS TIME. PT IS ALERT ORIENTED X2. KAZAKH SPEAKING. NO SOB NOTED, NO S/S OF ANY APPARENT DISTRESS NOTED. NO C/O PAIN NOTED AT THIS TIME. RESPIRATIONS ARE EVEN AND UNLABORED. PT NOTED ON HF AT 40L WITH FIO2 AT 90%. IV ACCESS NOTED IN LEFT HAND G#20, INTACT, PATENT AND FLUSHING WELL. ASPIRATION AND SAFETY PRECAUTION IN PLACE AND MAINTAINED AT ALL TIMES. BED IN LOWEST LOCKED POSITION, HOB ELEVATED, SIDE RAILS UP X 2, CALL LIGHT AND TABLE WITHIN REACH. WILL CONTINUE TO MONITOR
[2020-10-13 08:00] VITALS: BP 101/57
[2020-10-13] MEDS: DEXAMETHASONE SOD PHOSPHATE 10 MG/ML VIAL IV SCH (08:42)
[2020-10-13] MEDS: FINASTERIDE (5 MG) 5 MG TABLET PO SCH (08:42)
[2020-10-13] MEDS: GABAPENTIN 300 MG CAPSULE PO SCH ×3 (08:42→17:00)
[2020-10-13] MEDS: AMLODIPINE BESYLATE 5 MG TABLET PO SCH (08:45)
[2020-10-13] MEDS: PANTOPRAZOLE 40 MG TABLET.DR PO SCH (08:45)
--- NOTE | 2020-10-13 11:00 | NUR ---
tele extension work director: notes received pt sitting up in chair on a high flow oxygen 40 liter of flow on 90% fio2, satting at 93%. awake, a/ox2, amharic speaking with little nepali. will continue to monitor.
[2020-10-13] MEDS ORDERED: APIXABAN 2.5 MG TABLET PO SCH (11:30)
--- NOTE | 2020-10-13 11:55 | NUR ---
tele binding cementer french cord: notes per report pt had a blood in the stool in the morning, pt is on eliquis. dr. wiggins notified and made aware with order to hold eliquis. order read back and carried. md ask if pt has been seen by gi doctor, informed dr. wiggins that there is no gi consult order yet.
[2020-10-13 12:00] VITALS: BP 105/66
--- NOTE | 2020-10-13 12:10 | NUR ---
tele aircraft dispatcher: notes dr. wiggins here and informed me that he already called dr. emanuel (gi) to see him and start clear liquid diet. orders read back and carried out.
--- NOTE | 2020-10-13 12:45 | NUR ---
tele military technician: notes figueroa catheter inserted [id number], luis. well. will continue to monitor.
--- NOTE | 2020-10-13 13:00 | NUR ---
tele pricing coordinator: notes pt remains lethargic, held due po med at this time. will continue to monitor.
[2020-10-13 14:27] LABS: C-REACTIVE PROTEIN 6.8 mg/dL (0.0-0.9)
[2020-10-13 16:00] VITALS: BP 109/69
--- NOTE | 2020-10-13 17:00 | NUR ---
tele share holder: notes pt remains lethargic, held due po meds at this time. will continue to monitor.
--- NOTE | 2020-10-13 18:30 | NUR ---
tele pickling drum operator: notes pt remains lethargic, but easily arousable, kinyarwanda speaking. reality orientation provided prn. needs attended. will continue to monitor.
--- NOTE | 2020-10-13 18:45 | NUR ---
tele call center dispatcher: notes and daughter called and updated plan of care. noted pt desating to 88%. r.t. notified and place pt on 100% fio2, still on high flow oxygen. hob elevated. will continue to monitor.
--- NOTE | 2020-10-13 19:15 | NUR ---
tele corporate associate: notes report given to bee messer) for continuity of care.
--- NOTE | 2020-10-13 19:40 | NUR ---
GEOGRAPHY TEACHER OPENING NOTES RECEIVED PATIENT AWAKE IN BED AT THIS TIME. PT IS ALERT ORIENTED X2. MALTESE SPEAKING. NO SOB NOTED, NO S/S OF ANY APPARENT DISTRESS NOTED. NO C/O PAIN NOTED AT THIS TIME. RESPIRATIONS ARE EVEN AND UNLABORED. ON NON REBREATHER MASK USING HF AT 40L WITH FIO2 AT 100% & SATTING AT 97%. IV ACCESS NOTED IN LEFT HAND G#20, INTACT, PATENT AND FLUSHING WELL. ON CLEAR LIQUID DIET ORDERED BY MD. ASPIRATION AND SAFETY PRECAUTION IN PLACE AND MAINTAINED AT ALL TIMES. GARCIA CATH IN PLACE,, DRAINING YELLOW COLOR URINE. BED IN LOWEST LOCKED POSITION, HOB ELEVATED, SIDE RAILS UP X 2, CALL LIGHT AND TABLE WITHIN REACH. WILL CONTINUE TO MONITOR
[2020-10-13 20:00] VITALS: BP 122/67
[2020-10-13] MEDS: DOCUSATE SODIUM 100 MG CAPSULE PO SCH (21:34)
[2020-10-14 00:16] VITALS: BP 110/69
[2020-10-14] MEDS: DILTIAZEM HCL 30 MG TABLET PO SCH ×4 (00:21→17:18)
[2020-10-14 04:00] VITALS: BP 118/66
--- NOTE | 2020-10-14 06:30 | NUR ---
HOG HANDLER NOTE PATIENT'S VITALS ARE 115/61, 84, 22, 97.7, 98% WITH NON REBREATHER MASK AT 15 LPM. CONTINUING TO MONITOR FOR ANY ROX.
[2020-10-14 06:35] LABS: BASOPHILS # (AUTO) 0.1 /CMM (0.0-0.2); BASOPHILS % (AUTO) 0.4 % (0.0-2.0); HEMATOCRIT 33 % (39-51); HEMOGLOBIN 11.1 g/dL (13.5-17.5); LYMPHOCYTES # (AUTO) 0.1 /CMM (0.8-4.8); LYMPHOCYTES % (AUTO) 0.5 % (20.0-44.0); MEAN CORPUSCULAR HGB CONC 33 g/dl (31.0-36.0); MEAN CORPUSCULAR VOLUME 92 fL (80-96); MONOCYTES % (AUTO) 0.1 % (2.0-12.0); NEUTROPHILS # (AUTO) 28.1 /CMM (1.8-8.9); PLATELET COUNT (AUTO) 121 /CMM (150-450); RED BLOOD CELL COUNT(AUTO) 3.64 MIL/uL (4.5-6.0); WHITE BLOOD COUNT (AUTO) 28.4 K/uL (4.3-11.0)
--- NOTE | 2020-10-14 06:47 | NUR ---
MANAGEMENT SERVICES TECHNICIAN NOTE: HELD CARDIZEM PATIENT'S CARDIZEM WAS HELD DUE TO FLUCTUATING BLOOD PRESSURES, VITALS ARE 94/63, 92, 22, 97.7, 98%. MONITORING PATIENT VERY CLOSELY FOR ANY ROX. CHARGE NURSE MADE AWARE.
[2020-10-14 06:50] LABS: ALANINE AMINOTRANSFERASE 25 U/L (12-78); ALBUMIN 1.6 g/dL (3.4-5.0); ALKALINE PHOSPHATASE 111 U/L (46-116); ASPARTATE AMINOTRANSFERASE 20 U/L (15-37); BILIRUBIN,TOTAL 0.3 mg/dL (0.2-1.0); CARBON DIOXIDE 16 mmol/L (21-32); CHLORIDE 116 mmol/L (98-107); CREATININE 4.1 mg/dL (0.6-1.3); GLUCOSE 149 mg/dL (74-106); MAGNESIUM 2.8 mg/dL (1.8-2.4); PHOSPHORUS 7.3 mg/dL (2.5-4.9); SODIUM SERUM 148 mmol/L (136-145); TOTAL PROTEIN, SERUM 5.1 g/dL (6.4-8.2)
[2020-10-14 06:54] LABS: UREA NITROGEN, BLOOD 156 mg/dL (7-18)
[2020-10-14 07:10] LABS: CREATINE KINASE, TOTAL 365 U/L (39-308); FERRITIN 279 ng/mL (8-388); PROSTATE SPECIFIC ANTIGEN SCR 8.36 ng/mL (0.00-4.00)
--- NOTE | 2020-10-14 07:26 | NUR ---
FIFTH HAND CLOSING NOTES PATIENT IN BED SLEEPING, EASILY AROUSABLE, VERBALLY RESPONSIVE ,ALERT AND ORIENTED X2. RESPIRATIONS EVEN AND UNLABORED WITH EQUAL RISE AND FALL OF CHEST, ON HIGH FLOW 02 40LPM AND 15 L VIA NRB MASK TOLERATING WELL AT THIS TIME AND THROUGHOUT SHIFT , IV SITE TO LEFT HAND #22 G INTACT AND PATENT, NO REDNESS, NO INFILTRATION PRESENT, CALL LIGHT KEPT WITHIN REACH, SAFETY PRECAUTIONS MAINTAINED LOW BED AND LOCKED BED ALARM IN PLACE, PERINEAL CARE, URINE OUT PUT IS 550 ML. REPOSITIONING AND FLUIDS OFFERED, VERY SMALL AMOUNT OF DARK COLOR/BLOODY BM NOTED, UNABLE TO COLLECT FOR SPECIMEN, WAS ABSORBED ON THE PAD. ENDORSED TO AM RN FOR CONTINUITY OF CARE.
--- NOTE | 2020-10-14 07:30 | NUR ---
RN OPENING NOTES PATIENT CURRENTLY IN BED, SLEEPING. EASILY AROUSABLE. PATIENT IS A/O X2 RESP EVEN AND UNLABORED. CURRENTLY ON HIGH FLOW O2 AT 40 LPM AND 15 L NRB MASK, TOLERATING WELL AT THIS TIME. IV SITE TO LEFT HAND #22 G INTACT AND PATENT, NO REDNESS, NO INFILTRATION PRESENT. ALL SAFETY MEASURES IN PLACE PER HOSPITAL POLICY, CALL LIGHT WITHIN REACH, BED LOCKED IN LOWEST POSITION. WILL CONTINUE TO MONITOR AND PROVIDE TREATMENT.
[2020-10-14 08:00] VITALS: BP 104/48
[2020-10-14] MEDS: AMLODIPINE BESYLATE 5 MG TABLET PO SCH (09:00)
[2020-10-14] MEDS: HEPARIN SODIUM, PORCINE 5000 UNITS/1 ML VIAL SQ SCH ×4 (09:18→22:48)
[2020-10-14] MEDS: FINASTERIDE (5 MG) 5 MG TABLET PO SCH (09:20)
[2020-10-14] MEDS: GABAPENTIN 300 MG CAPSULE PO SCH ×3 (09:20→17:18)
[2020-10-14] MEDS: PANTOPRAZOLE 40 MG TABLET.DR PO SCH (09:20)
[2020-10-14 10:24] LABS: BAND % (MANUAL) 1 % (0.0-5.0); MONOCYTES % (MANUAL) 2 % (0-11.0); NEUTROPHILS % (MANUAL) 97 (42-76)
[2020-10-14 12:00] VITALS: BP 111/66
[2020-10-14 14:30] LABS: C-REACTIVE PROTEIN 8.3 mg/dL (0.0-0.9)
[2020-10-14 16:00] VITALS: BP 122/60
--- NOTE | 2020-10-14 19:00 | NUR ---
RN OPENING NOTES PATIENT CURRENTLY IN BED, SLEEPING. EASILY AROUSABLE. PATIENT IS A/O X2 RESP EVEN AND UNLABORED. CURRENTLY ON HIGH FLOW O2 AT 40 LPM AND 15 L NRB MASK, TOLERATING WELL AT THIS TIME. IV SITE TO LEFT HAND #22 G INTACT AND PATENT, NO REDNESS, NO INFILTRATION PRESENT. ALL SAFETY MEASURES IN PLACE PER HOSPITAL POLICY, CALL LIGHT WITHIN REACH, BED LOCKED IN LOWEST POSITION. WILL ENDORSE TO CHILD WELFARE COUNSELOR NURSE FOR ROX. Addendum: 10/14/20 at 1902 by BOBBY VARELA RN * RN CLOSING NOTE
[2020-10-14 20:00] VITALS: BP 118/71
--- NOTE | 2020-10-14 20:02 | NUR ---
RN NOTE PATIENT IS A/O X2 RESPIRATIONS EVEN AND UNLABORED. CURRENTLY ON HIGH FLOW O2 AT 40 LPM/100% AND 15 L NRB MASK, TOLERATING WELL AT THIS TIME. IV SITE TO LEFT HAND #22 INTACT AND PATENT, NO S/S OF INFECTION OR INFILTRATION. BED LOCKED AND IN LOWEST POSITION. SAFETY MEASURES IMPLEMENTED. CALL LIGHT WITHIN REACH. WILL CONTINUE TO MONITOR.
[2020-10-14] MEDS: DOCUSATE SODIUM 100 MG CAPSULE PO SCH (21:59)
--- NOTE | 2020-10-14 22:48 | NUR ---
HEPARIN 5000 UNITS HELD, PER DR. MALDONADO. Addendum: 10/15/20 at 0531 by MARK SHORE RN heparin 5000 units wasted, not held.
[2020-10-15] VITALS (45 sets, daily range): BP systolic 65–125; BP diastolic 28–71
[2020-10-15] MEDS: DILTIAZEM HCL 30 MG TABLET PO SCH ×4 (01:28→17:19)
--- NOTE | 2020-10-15 03:22 | NUR ---
PATIENT NOTED WITH 1 SMALL BM, DARK AND TARRY STOOL. STOOL SPECIMEN AND URINE SPECIMEN COLLECTED AND READY FOR THICKENER OPERATOR. LAB MADE AWARE.
[2020-10-15 04:42] LABS: OCCULT BLOOD STOOL POSITIVE (NEGATIVE)
[2020-10-15 04:44] LABS: BILIRUBIN,URINE NEGATIVE (NEGATIVE); COLOR,URINE YELLOW (YELLOW); LEUKOCYTE ESTERASE ,URINE SMALL (NEGATIVE); NITRITE, URINE NEGATIVE (NEGATIVE); PH,URINE 5.5 (5.0-8.0); PROTEIN,URINE TRACE mg/dl (NEGATIVE); UGLUCOSE NEGATIVE (NEGATIVE); UROBILINOGEN,URINE 0.2 EU/dL (0.2)
[2020-10-15 04:50] LABS: CREATININE, URINE 72.3 MG/DL (30.0-125.0); URINE TOTAL PROTEIN 66.4 mg/dL (0-11.9)
[2020-10-15 05:17] LABS: EOSINOPHIL,URINE None Seen
[2020-10-15 05:18] LABS: BACTERIA,URINE Few /HPF (None Seen); SQUAMOUS EPITHELIAL CELL,UR Rare /HPF (None Seen); WBC,URINE 51-80 /HPF (0-3)
[2020-10-15 06:25] LABS: ALANINE AMINOTRANSFERASE 24 U/L (12-78); ALBUMIN 1.5 g/dL (3.4-5.0); ALKALINE PHOSPHATASE 117 U/L (46-116); ASPARTATE AMINOTRANSFERASE 17 U/L (15-37); BILIRUBIN,TOTAL 0.3 mg/dL (0.2-1.0); CALCIUM, SERUM 7.3 mg/dL (8.5-10.1); CARBON DIOXIDE 16 mmol/L (21-32); CHLORIDE 117 mmol/L (98-107); CREATININE 5.1 mg/dL (0.6-1.3); GLUCOSE 151 mg/dL (74-106); PHOSPHORUS 7.8 mg/dL (2.5-4.9); POTASSIUM 5.1 mmol/L (3.5-5.1); SODIUM SERUM 151 mmol/L (136-145); TOTAL PROTEIN, SERUM 5.3 g/dL (6.4-8.2)
[2020-10-15 06:27] LABS: BASOPHILS # (AUTO) 0.1 /CMM (0.0-0.2); BASOPHILS % (AUTO) 0.4 % (0.0-2.0); HEMATOCRIT 34 % (39-51); HEMOGLOBIN 11.1 g/dL (13.5-17.5); LYMPHOCYTES # (AUTO) 0.1 /CMM (0.8-4.8); LYMPHOCYTES % (AUTO) 0.4 % (20.0-44.0); MEAN CORPUSCULAR HGB CONC 33 g/dl (31.0-36.0); MEAN CORPUSCULAR VOLUME 92 fL (80-96); MONOCYTES % (AUTO) 0.1 % (2.0-12.0); NEUTROPHILS # (AUTO) 32.8 /CMM (1.8-8.9); NEUTROPHILS % (AUTO) 99.1 % (43.0-81.0); PLATELET COUNT (AUTO) 140 /CMM (150-450); RED BLOOD CELL COUNT(AUTO) 3.68 MIL/uL (4.5-6.0)
[2020-10-15 06:34] LABS: UREA NITROGEN, BLOOD 180 mg/dL (7-18)
--- NOTE | 2020-10-15 06:55 | NUR ---
RN NOTE PATIENT IS A/O X2 RESPIRATIONS EVEN AND UNLABORED. CURRENTLY ON HIGH FLOW O2 AT 40 L FIO2 75% O2 SAT 98%. TOLERATING WELL AT THIS TIME. IV SITE TO LEFT HAND #22 INTACT AND PATENT, NO S/S OF INFECTION OR INFILTRATION. BED LOCKED AND IN LOWEST POSITION. SAFETY MEASURES IMPLEMENTED. CALL LIGHT WITHIN REACH. WILL ENDORSE TO ONCOMING SHIFT.
[2020-10-15 07:02] LABS: WHITE BLOOD COUNT (AUTO) 33.1 K/uL (4.3-11.0)
[2020-10-15] MEDS: PANTOPRAZOLE 40 MG TABLET.DR PO SCH (07:30)
--- NOTE | 2020-10-15 07:30 | NUR ---
RN TELE1 PATIENT IN BED, NO S/S OF DISTRESS, ON HIGHFLOW 40L FIO2 75%, O2 SAT >95%, A/O XD1-2, TELE MONITOR IN PLACE SINUS TACHY IN THE 100S, YAKUT SPEAKING USED STAFF TO TRANSLATE, STRICT I/O, FALL RISK BED IN LOWEST LOCKED POSITION, CALL LIGHT WITHIN REACH, SAFETY MEASURES IN PLACE, CLEAR LIQUID DIET, L HAND 20 G IV INTACT CLEAN DRY FLUSHES WELL, WILL CONTINUE TO MONITOR.
[2020-10-15 08:46] LABS: ABG BASE EXCESS -12.4 mmol/L; ABG OXYGEN SATURATION 91.7 % (92.0-98.5); ABG PCO2 26.5 mmHg (35.0-45.0); ABG PH 7.293 (7.350-7.450); ABG PO2 68.4 mmHg (75.0-100.0); AaDO2 438.2 mmHg; COHb 0.4 % (0.5-1.5); MetHb 0.9 % (0.0-1.5); O2Hb 90.5 % (94.0-97.0); SITE, ABG Right Radial; VENT MODE, BG HFNC 75%
[2020-10-15] MEDS: AMLODIPINE BESYLATE 5 MG TABLET PO SCH (09:00)
[2020-10-15] MEDS: FINASTERIDE (5 MG) 5 MG TABLET PO SCH (09:00)
[2020-10-15] MEDS: GABAPENTIN 300 MG CAPSULE PO SCH ×3 (09:00→17:18)
[2020-10-15 09:10] LABS: CREATINE KINASE, TOTAL 349 U/L (39-308); FERRITIN 297 ng/mL (8-388)
[2020-10-15] MEDS ORDERED: PROPOFOL 100 ML IV PRN (09:30)
--- NOTE | 2020-10-15 09:30 | NUR ---
patient s/p laborer pole crew intubated and transferred to icu,family notified.
--- NOTE | 2020-10-15 09:50 | NUR ---
RN TELE1 GAVE REPORT TO POLO IN ICU, PATIENT HOOKED UP TO MONITOR, RT PRESENT FOR TRANSFER. SPOKE TO OVER THE PHONE ABOUT PATIENT TRANSFER, UNDERSTOODM, ANSWERED QUESTIONS.
--- NOTE | 2020-10-15 09:50 | NUR ---
RN NOTE Responded REMEDIATION TECHNICIAN, patient noted with respiratory distress as evidenced by using accessory muscles, and agonal. Patient is non responsive to verbal stimuli. Per RN, Dr. Youngblood just saw patient and ordered for rapid intubation. ER MD placed ETT and placed patient to ICU 253, using ACLS protocol. With 1PIV intact, Martinez cath intact. isolation prec for Covid maintained and observed. AFib 100's. Placed on LONGSHORE EQUIPMENT OPERATOR restraints for safety will continue to monitor.
[2020-10-15] MEDS ORDERED: ETOMIDATE 2 MG/ML VIAL ONE (10:00)
[2020-10-15] MEDS ORDERED: ROCURONIUM BROMIDE 50 MG/5 ML ONE (10:00)
[2020-10-15 10:17] LABS: MONOCYTES % (MANUAL) 1 % (0-11.0); MYELOCYTES % 2 % (0-0); NEUTROPHILS % (MANUAL) 97 (42-76)
[2020-10-15 10:38] LABS: ABG BASE EXCESS -18.3 mmol/L; ABG OXYGEN SATURATION 96.1 % (92.0-98.5); ABG PCO2 39.9 mmHg (35.0-45.0); ABG PH 7.063 (7.350-7.450); AaDO2 562.1 mmHg; COHb 0.3 % (0.5-1.5); MetHb 0.9 % (0.0-1.5); O2Hb 94.9 % (94.0-97.0); SITE, ABG Right Brachial; VENT MODE, BG AC 28 400 100 +5
--- NOTE | 2020-10-15 10:50 | NUR ---
RN NOTE ABG resulted, Dr. Youngblood ordered Vt 450, 2 amps bicarb push and D5W with 3 amps Bicarb @ 50 and ABG at 1500, made RT aware.
[2020-10-15] MEDS: HEPARIN SODIUM, PORCINE 5000 UNITS/1 ML VIAL SQ SCH (10:54)
[2020-10-15] MEDS ORDERED: SODIUM BICARBONATE SYR 50 MEQ/50 ML DISP.SYRIN IV ONE (11:00)
[2020-10-15] MEDS: Sodium Bicarbonate 150 MEQ in IV D5W 1,000 ML IV PRN (11:13)
[2020-10-15 13:47] LABS: C-REACTIVE PROTEIN 25.8 mg/dL (0.0-0.9)
[2020-10-15] MEDS: NOREPINEPHRINE 8 MG in IV NS 0.9% 242 ML IV PRN ×3 (14:54→22:28)
--- NOTE | 2020-10-15 20:00 | NUR ---
agricultural extension educator. initial assessment. received the pt rest on the bed. orally intubated. sedated with diprivan. smaller dose. ett 7.5,lip 24,ac 28,tv 450,fio2 100%,peep 5. sat 94%. pt is tachypneic, abg done. abnormal result, mindy notified. pt on bicarb drip. ngt intact. pt is npo. fc patent. iv rt upper arm picc line. ivf d5win 3 amp bicarb @ 75 ml/h,levophed mcg/kg/min, nitza started. .afebrile. will continue to monitor vitals will continue to monitor vitals.pt is very unstable,
--- NOTE | 2020-10-15 20:24 | NUR ---
RT NOTE PT RECEIVED INTUBATED WITH 7.5 ET TUBE @ 24 CM. INCREASED FIO2 TO 100% DUE TO LOW SPO2. AMBU BAG @ HOB. SX DONE, ET TUBE SECURED AND PATENT. BILATERAL CHEST RISE. VENT PLUGGED TO RED OUTLET. ALARMS ON AND AUDIBLE. NO DISTRESS NOTED AT THIS TIME. WILL CONTINUE TO MONITOR T/O SHIFT. Addendum: 10/15/20 at 2024 by KRISTEN ADDISON RT Amended: Links added.
[2020-10-15] MEDS ORDERED: PHENYLEPHRINE 100 MG in IV NS 0.9% 240 ML IV PRN (20:30)
[2020-10-15 20:58] LABS: ABG BASE EXCESS -12.6 mmol/L; ABG OXYGEN SATURATION 86.6 % (92.0-98.5); ABG PCO2 51.5 mmHg (35.0-45.0); ABG PH 7.121 (7.350-7.450); ABG PO2 66.4 mmHg (75.0-100.0); AaDO2 595.1 mmHg; COHb 0.3 % (0.5-1.5); MetHb 0.5 % (0.0-1.5); O2Hb 85.9 % (94.0-97.0); PEEP,BG 5 cm H2O; SITE, ABG Right Brachial; VT, ABG 450 mL
[2020-10-15] MEDS ORDERED: APIXABAN 2.5 MG TABLET PO SCH (21:00)
[2020-10-15] MEDS: DOCUSATE SODIUM 100 MG CAPSULE PO SCH (22:30)
[2020-10-16] VITALS (10 sets, daily range): BP systolic 52–80; BP diastolic 25–45
[2020-10-16] MEDS: DILTIAZEM HCL 30 MG TABLET PO SCH
--- NOTE | 2020-10-16 | NUR ---
rn pediatric icu.spoke with change pt code status now DNR
[2020-10-16] MEDS: NOREPINEPHRINE 8 MG in IV NS 0.9% 242 ML IV PRN (00:07)
[2020-10-16] MEDS ORDERED: SODIUM BICARBONATE SYR 50 MEQ/50 ML DISP.SYRIN ONE (01:02)
[2020-10-16] MEDS ORDERED: NOREPINEPHRINE 4 MG/4 ML AMPUL IV ONE (01:03)
--- NOTE | 2020-10-16 01:12 | NUR ---
agriculture sales account manager cardizem po not given. pt on levo, nitza. mindy made aware
--- NOTE | 2020-10-16 01:51 | NUR ---
floriculture professor. pt is very unstable, no gag reflex, nitza, levo max out.
--- NOTE | 2020-10-16 01:56 | NUR ---
DIRECTOR MEDICARE SALES. SUDDEN MONITOR SHOWING OMAIRA CARDIA. THEN A SYSTOLE. NO HEART BEAT, NO PULSE,NO BP AND SATURATION NOT SHOWING. PT AT 0156. NOTIFIED LEGAL ADMINISTRATIVE ASSISTANT TAWANNA
--- NOTE | 2020-10-16 02:00 | NUR ---
CASE MAKER. NOTIFIED [facility]. CASE NO #[id number]. SPOKE PERSON . ITZEL. NOTIFIED ADMITTING
[2020-10-16] MEDS: Sodium Bicarbonate 150 MEQ in IV D5W 1,000 ML IV PRN (02:08)
--- NOTE | 2020-10-16 03:00 | NUR ---
POST MORTEM CARE GIVEN. BODY SEND TO [facility]
--- NOTE | 2020-10-16 05:04 | NUR ---
RN/ICU-LATE ENTRY:PRONOUNCEMENT OF .PATIENT IS A "DNR" STATUS. PT. IS UNRESPONSIVE TO ANY FORM OF STIMULI. EXTREMITIES ARE FLACCID. HEART TONES ABSENT. PERIPHERAL PULSES ARE ABSENT ASYSTOLE X 2 LEADS.. APNEIC. NO SIGNS OF LIFE. PT. PRONOUNCED AT 0156.
== END 2020-10-16 00:23 | disposition expired | DRG 871 ==
LOC: ER 12:55 → OBSVTOIN 20:30 → TRANSITION 20:30 → EDBD 20:30 → TELE1 10-07 03:55 → ICU 10-15 09:00
PROVIDERS: ADMIT Student in an Organized Health Care Education/Training Program
PROC: XW13325 Transfusion of Convalescent Plasma (Nonautologous) into Peripheral Vein, Percutaneous Approach, New Technology Group 5 (ICD-10-PCS; principal; 2020-10-09)
PROC: 5A1935Z Respiratory Ventilation, Less than 24 Consecutive Hours (ICD-10-PCS; 2020-10-15)
PROC: 0BH17EZ Insertion of Endotracheal Airway into Trachea, Via Natural or Artificial Opening (ICD-10-PCS; 2020-10-15)
PROC: 02HV33Z Insertion of Infusion Device into Superior Vena Cava, Percutaneous Approach (ICD-10-PCS; 2020-10-15)
DX: A41.89 Other specified sepsis (principal); U07.1 COVID-19; J12.89 Other viral pneumonia; N17.0 Acute kidney failure with tubular necrosis; G93.41 Metabolic encephalopathy; J96.01 Acute respiratory failure with hypoxia; I50.33 Acute on chronic diastolic (congestive) heart failure; J12.82 Pneumonia due to coronavirus disease 2019; E44.0 Moderate protein-calorie malnutrition; D68.59 Other primary thrombophilia; E87.0 Hyperosmolality and hypernatremia; I13.0 Hypertensive heart and chronic kidney disease with heart failure and stage 1 through stage 4 chronic kidney disease, or unspecified chronic kidney disease; E87.2 Acidosis; K62.5 Hemorrhage of anus and rectum; I48.91 Unspecified atrial fibrillation; Z85.46 Personal history of malignant neoplasm of prostate; Z66 Do not resuscitate; D69.6 Thrombocytopenia, unspecified; E86.1 Hypovolemia; N40.0 Benign prostatic hyperplasia without lower urinary tract symptoms; Z79.899 Other long term (current) drug therapy; N18.9 Chronic kidney disease, unspecified; N28.1 Cyst of kidney, acquired
CPT/HCPCS: 31720; 36415; 36600; 71045-TC; 76770-TC; 80048-TC; 80053-TC; 80061-TC; 80076-TC; 81001; 82272-TC; 82550-TC; 82570-TC; 82728-TC; 82803-TC; 82962-TC; 83615-TC; 83690-TC; 83735-TC; 83880; 84100-TC; 84153-TC; 84154-TC; 84155-TC; 84300-TC; 84439-TC; 84443-TC; 84484-TC; 85025-TC; 85378-TC; 86140-TC; 86850-TC; 87081-TC; 87086-TC; 92526; 92611-TC; 93307-TC; 94002-TC; 94003-TC; 94760-TC; 94762-TC; 94799-TC; 99082-TC; A4217; A4349; C9803; G0378; J0282; J1100; J1644; J1940; J2370; J3490; J7030; J7050; J7060; J7070; P9017-BL